=== PATIENT | female | born 1960 | race Caucasian/White ===

== ENCOUNTER 2024-09-16 10:02 | Outpatient (CLI) | payer OTHER, MEDICARE, SELFPAY ==
--- NOTE | ~2024-09-16 | XR_ITS ---
AP and lateral views of the left hip Clinical history: Pain Findings: No acute fracture or dislocation is seen. Osseous alignment is anatomic. There is severe le ft hip joint osteoarthritis, with marked joint space narrowing and reactive sclerosis. There is femor al head neck junction osteophyte formation and mild remodeling of the articular surface of the femora l head.. Soft tissues are unremarkable. Impression: Severe left hip joint osteoarthritis, as detailed above. Reviewed, dictated and finalized at location M. Impression: Severe left hip joint osteoarthritis, as detailed above.
--- NOTE | ~2024-09-16 | XR_ITS ---
AP and lateral views of the right hip Clinical history: Pain Findings: No acute fracture or dislocation is seen. Osseous alignment is anatomic. There is minimal d egenerative change of the right hip joint. Soft tissues are unremarkable. Impression: Minimal right hip joint degenerative change. Reviewed, dictated and finalized at location . Impression: Minimal right hip joint degenerative change.
== END 2024-09-16 10:03 | disposition home or self-care (01) ==
LOC: MICIMG 10:11
PROVIDERS: Referring Provider Internal Medicine; Visit Provider Nurse Practitioner Family
DX: M45.0 Ankylosing spondylitis of multiple sites in spine (principal); G47.01 Insomnia due to medical condition; Z79.899 Other long term (current) drug therapy; M54.32 Sciatica, left side; M16.12 Unilateral primary osteoarthritis, left hip
CPT/HCPCS: 73502

== ENCOUNTER 2024-11-27 10:44 | Inpatient (IN) | payer OTHER, MEDICARE, SELFPAY ==
[2024-11-27] VITALS (33 sets, daily range): BP systolic 104–152; BP diastolic 50–130; PULSE 81–775; RESP 8–24; TEMP 36.4–36.7; O2SAT 94–99; BMI 61.5
--- NOTE | ~2024-11-27 | US_ITS ---
US renal BI 11/29/2024 12:09 Procedure: Realtime transabdominal ultrasound of the kidneys and bladder. Indication: Acute renal deficiency Comparison: No prior studies for comparison. Findings: Renal echotexture is normal bilaterally without hydronephrosis, contour deforming mass or r enal calculus. The right kidney measures 9.1 cm and left kidney measures 8.9 cm. Bladder within norm al limits. Impression: 1: Unremarkable renal ultrasound. No stones, masses or hydronephrosis. Reviewed, dictated and finalized at location A. Impression: 1: Unremarkable renal ultrasound. No stones, masses or hydronephrosis.
--- NOTE | ~2024-11-27 | XR_ITS ---
EXAM: XR hip RT 2V w AP pelvis DATE: 11/27/2024 14:21 HISTORY: hip pain, trauma . COMPARISON: 09/16/2024. FINDINGS: Osteopenia. Severe lumbar degenerative change. Moderate right and severe left hip osteoart hritis. Mild degenerative change in the bilateral SI joints and pubic symphysis. Suggestion of transv erse lucency at the base of the right femoral neck. No lytic or blastic lesion. IMPRESSION: Possible right transcervical femoral neck fracture, recommend CT of the pelvis for confir mation. Reviewed, dictated and finalized at location K. IMPRESSION: Possible right transcervical femoral neck fracture, recommend CT of the pelvis for confirmation.
--- NOTE | ~2024-11-27 | CT_ITS ---
EXAMINATION: CT pelvis wo con DATE: 11/27/2024 15:41 INDICATION: Possible right hip fracture TECHNIQUE: Computed tomography (CT) of the pelvis was performed without intravenous contrast. Automat ed exposure control and iterative reconstruction technique were employed. The dose-length product was 1134.51 mGy-cm. COMPARISON: X-ray pelvis and right hip, same date FINDINGS: Degenerative changes in the spine. Mild degenerative changes in the bilateral SI joints and pubic symphysis. Severe right and moderate left hip osteoarthritis. No fracture or dislocation. No l ytic or blastic lesion. Small uncomplicated fat-containing umbilical hernia. Normal appendix. Absent uterus. Partially distended, normal-appearing urinary bladder. Bilateral ovaries not confidently iden tified. IMPRESSION: No CT evidence of acute pelvic or hip fracture. Reviewed, dictated and finalized at location K.
--- NOTE | ~2024-11-27 | XR_ITS ---
CHEST RADIOGRAPH CLINICAL HISTORY: JOSE JUAN . COMPARISON: None available TECHNIQUE: Single portable view of the chest. Examination is limited secondary to patient rotation towards their left, simulating abnormal opacific ation of the right hilum. FINDINGS The cardiomediastinal silhouette is enlarged. Platelike atelectasis is identified within the left mid to lower lung field. Prominence of the right hilum is demonstrated, likely artifactual secondary to patient rotation. The lungs are otherwise clear. IMPRESSION: Platelike atelectasis within the left mid to lower lung field. No focal infiltrate or effusion. Reviewed, dictated and finalized at location A.
--- NOTE | ~2024-11-27 | CT_ITS ---
EXAMINATION: CT brain wo con DATE: 11/27/2024 13:59 INDICATION: Trauma TECHNIQUE: Computed tomography (CT) of the head was performed without intravenous contrast. Sagittal and coronal reconstructions were performed. The mA was adjusted according to patient size. Iterative reconstruction technique was employed. The dose-length product was 1362.00 mGy-cm. COMPARISON: None FINDINGS: No fracture. No acute intracranial hemorrhage, acute infarction or abnormal extra axial fluid collect ion. Small old lacunar infarct near the [place] of the left internal capsule. Prominent perivascular spaces along the inferior aspect of the bilateral basal ganglia. There is mild scattered white matter hypoattenuation consistent with chronic small vessel ischemic disease. Ventricles are normal and sy mmetric. 1.4 x 1.3 x 1.1 cm calcified extra-axial mass overlying the right occipital lobe consistent with a meningioma. The orbits, paranasal sinuses and mastoid air cells are normal. IMPRESSION: 1. No fracture or acute intracranial process. 2. Small old lacunar infarct at the left internal capsule and mild scattered white matter hypoattenua tion consistent with chronic small vessel ischemic disease. 3. 1.4 cm calcified meningioma overlying the right occipital lobe. Reviewed, dictated and finalized at location A. IMPRESSION: 1. No fracture or acute intracranial process. 2. Small old lacunar infarct at the left internal capsule and mild scattered wh ite matter hypoattenuation consistent with chronic small vessel ischemic diseas e. 3. 1.4 cm calcified meningioma overlying the right occipital lobe.
--- NOTE | 2024-11-27 11:58 | ECG_ITS ---
Test Date: 2024-11-27 12:02:55 Measurements Intervals [place] Rate: 159 P: 0 PA: 0 QRS: 11 QRSD: 97 T: 27 QT: 296 QTc: 482 Interpretive Statements ATRIAL FLUTTER/TACHYCARDIA WITH RAPID VENTRICULAR RESPONSE BORDERLINE R WAVE PROGRESSION, ANTERIOR LEADS BASELINE ARTIFACT- I, II, III, AVR, AVL, AVF, V1 ABNORMAL ECG No previous ECG available for comparison Electronically Signed On 11-27-2024 16:20:10 CDT by Willy Peck D.O.
[2024-11-27] MEDS: LACTATED RINGERS 1,000 ML 999 ML IV CONT (12:22)
[2024-11-27] MEDS: METOPROLOL TARTRATE INJ 5 MG/5 ML VIAL IV PUSH (12:22)
--- NOTE | 2024-11-27 12:22 | ECG_ITS ---
Test Date: 2024-11-27 12:25:41 Measurements Intervals [place] Rate: 117 P: 0 [place]: 0 QRS: 22 QRSD: 104 T: 44 QT: 322 QTc: 450 Interpretive Statements ATRIAL FLUTTER/TACHYCARDIA WITH RAPID VENTRICULAR RESPONSE DELAYED PRECORDIAL R/S TRANSITION CONSIDER INFERIOR INFARCT, AGE INDETERMINATE ABNORMAL ECG Compared to ECG 11/27/2024 12:02:55 HEART RATE HAS DECREASED Electronically Signed On 11-27-2024 16:21:00 CDT by Willy Peck D.O.
[2024-11-27 12:31] LABS: Hematocrit 40.0 % (37.0-47.0); Hemoglobin 14.1 g/dL (12.0-15.0); Immature Granulocyte Percent A 0.7 % (0-0.5); Lymphocytes Absolute Auto 1.67 K/mm3 (0.9-3.2); Mean Corpuscular HGB Conc 35.3 g/dl (32-36); Mean Corpuscular Hemoglobin 38.2 pg (26-34); Mean Corpuscular Volume 108.4 fl (80-100); Nucleated Red Blood Cells Absolute Auto 0.110 K/mm3 (0.0-0.012); Nucleated Red Blood Cells Perc 1.0 % (0.0-0.2); Platelet Count Result 325 k/mm3 (150-375); Red Blood Count 3.69 M/mm3 (4.2-5.4); White Blood Count 11.0 K/mm3 (4.5-10.0)
--- NOTE | 2024-11-27 12:35 | ED_ITS ---
HPI - General Adult General Chief complaint: Fall Stated complaint: fall Time Seen by Provider: 11/27/24 11:43 History of Present Illness HPI narrative: 64-year-old female presents to the emergency department for evaluation for right hip pain after having a fall from bed. Patient reports a few days ago she was not eating and drinking as well she showed but felt this proved since . Patient states that she is unsure why she fell from bed. Have history of osteoarthritis. After patient arrived to the emergency department her heart rate did increase to a heart rate of 160s. Related Data Allergies Allergy/AdvReac Type Severity Reaction Status Date / Time No Known Allergies Allergy Verified 11/27/24 10:49 Review of Systems 2 Review of Systems: All systems reviewed & are unremarkable except as noted in HPI and below Exam 2 Narrative: APPEARANCE: Well appearing, no pain, no distress, well-nourished. HEAD: normocephalic, atraumatic. EYES: PERRLA/EOMI, conjunctivae clear. NOSE: Normal no drainage EARS:TMS clear with good light reflex. THROAT: Pharynx clear, no exudate. NECK: Supple. No adenopathy, no masses. RESPIRATORY: Airway patent, respirations nonlabored. Clear to auscultation bilaterally, no rales, rhonchi, wheezing. CARDIOVASCULAR: Tachycardia ABDOMINAL: Soft, nontender, nondistended, normal bowel sounds MUSCULOSKELETAL: Mild tenderness to right buttock with palpation, normal range of motion of the right hip NEURO: Alert. Cranial nerves II through XII intact. Good gait. Good coordination SKIN: Warm, dry. Normal Color Course Vital Signs Vital signs: Vital Signs Temperature 97.9 F 11/27/24 10:41 Pulse Rate 114 H 11/27/24 10:41 Respiratory Rate 14 11/27/24 10:41 Blood Pressure 152/85 H 11/27/24 10:41 Pulse Oximetry 99 11/27/24 10:41 Oxygen Delivery Room Air 11/27/24 10:41 Temperature 97.9 F 11/27/24 10:41 Pulse Rate 130 H 11/27/24 17:15 Respiratory Rate 24 H 11/27/24 17:15 Blood Pressure 140/129 H 11/27/24 13:02 Pulse Oximetry 95 11/27/24 17:15 Oxygen Delivery Room Air 11/27/24 10:41 Medical Decision Making MDM Narrative Medical decision making narrative: 64-year-old female presents to the emergency department for evaluation for having a fall from bed. Patient is currently afebrile but does have a leukocytosis 11.0 hemoglobin of 14.1. Patient's INR is 1.0. Patient has no significant acute abnormalities to her CMP patient does have an elevated CRP at 2.9 a TSH of 0 point 294 with a normal free T4, total T3 is pending. Head CT was negative for acute intracranial abnormality, this ordered as well patient fell out of bed she did suspect that she struck her head. X-ray of hip shows no acute fracture dislocation. While patient was in the emergency department she did enter a heart rate into the 160s, this did appear to be regular but no P waves were seen on the EKG, patient was treated with a dose of 5 mg IV Lopressor and this did slow her heart rate and she became more irregular revealing a rhythm of atrial flutter. Patient was started on Cardizem bolus and infusion. Patient's heart rate improved but was still elevated and Cardizem is being titrated up patient was treated with a 2nd dose of 10 mg IV Cardizem. Patient family updated the results of the workup and patient will be admitted to IMU. Critical Care Procedure Note Authorized and Performed by: Dwayne Ballard Total critical care time: Approximately 36 minutes Due to a high probability of clinically significant, life threatening deterioration, the patient required my highest level of preparedness to intervene emergently and I personally spent this critical care time directly and personally managing the patient. This critical care time included obtaining a history; examining the patient; pulse oximetry; ordering and review of studies; arranging urgent treatment with development of a management plan; evaluation of patient's response to treatment; frequent reassessment; and, discussions with other providers. This critical care time was performed to assess and manage the high probability of imminent, life-threatening deterioration that could result in multi-organ failure. It was exclusive of separately billable procedures and treating other patients and teaching time. Please see MDM section and the rest of the note for further information on patient assessment and treatment. Differential Diagnosis Differential Diagnosis: Hip fracture, hip contusion, AFib, a flutter, UTI, kidney stone, COVID, RSV, influenza, Vital Signs Vital Signs: Vital Signs Temperature 97.9 F 11/27/24 10:41 Pulse Rate 114 H 11/27/24 10:41 Respiratory Rate 14 11/27/24 10:41 Blood Pressure 152/85 H 11/27/24 10:41 Pulse Oximetry 99 11/27/24 10:41 Oxygen Delivery Room Air 11/27/24 10:41 Temperature 97.9 F 11/27/24 10:41 Pulse Rate 130 H 11/27/24 17:15 Respiratory Rate 24 H 11/27/24 17:15 Blood Pressure 140/129 H 11/27/24 13:02 Pulse Oximetry 95 11/27/24 17:15 Oxygen Delivery Room Air 11/27/24 10:41 Lab Data Lab results reviewed: Yes I reviewed the patient's lab results. 11/27/24 12:23 11/27/24 12:46 Labs: Lab Results 11/27/24 11/27/24 11/27/24 Range/Units 12:23 12:46 12:46 WBC 11.0 H (4.5-10.0) K/mm3 RBC 3.69 L (4.2-5.4) M/mm3 Hgb 14.1 (12.0-15.0) g/dL Hct 40.0 (37.0-47.0) % MCV 108.4 H (80-100) fl MCH 38.2 H (26-34) pg MCHC 35.3 (32-36) g/dl RDW 13.2 (11.5-14.5) % Plt Count 325 (150-375) k/mm3 MPV 10.3 (7.4-10.4) fl Immature Gran % (Auto) 0.7 H (0-0.5) % Neut % (Auto) 70.6 (45.5-73.1) % Lymph % (Auto) 15.2 L (18.3-44.2) % [place] % (Auto) 12.5 H (2.6-8.5) % Eos % (Auto) 0.5 (0-4.4) % Baso % (Auto) 0.5 (0.2-1.2) % Lymph # (Auto) 1.67 (0.9-3.2) K/mm3 [place] # (Auto) 1.4 H (0.1-0.6) K/mm3 Eos # (Auto) 0.1 (0-0.3) K/mm3 Baso # (Auto) 0.1 (0.0-0.1) K/mm3 Abs Immat Gran (auto) 0.08 H (0.00-0.031) K/mm3 Absolute Neuts (auto) 7.8 H (1.3-6.7) K/mm3 Absolute Nucleated RBC 0.110 H (0.0-0.012) K/mm3 Band Neutrophils % Not Reportable Nucleated RBC % 1.0 H (0.0-0.2) % Platelet Estimate Adequate (Adequate) Macrocytosis 2+ (NORMAL) Schistocytes None seen PT (11.1-14.7) Seconds INR APTT (22.3-36.8) Seconds Sodium Cancelled 135 L Potassium Cancelled Chloride Carbon Dioxide Anion Gap BUN Creatinine Estim Creat Clear Calc Estimated GFR Glucose Lactic Acid (0.7-2.0) mmol/L Calcium Magnesium (1.6-2.3) mg/dL Total Bilirubin AST ALT Alkaline Phosphatase C-Reactive Protein (<1.0) mg/dL Total Protein Albumin TSH (Reflex) (0.465-4.68) uIU/mL Free T4 (0.78-2.19) ng/dL Total T3 (0.82-1.58) NG/ML 11/27/24 11/27/24 11/27/24 Range/Units 12:46 12:46 12:46 WBC (4.5-10.0) K/mm3 RBC (4.2-5.4) M/mm3 Hgb (12.0-15.0) g/dL Hct (37.0-47.0) % MCV (80-100) fl MCH (26-34) pg MCHC (32-36) g/dl RDW (11.5-14.5) % Plt Count (150-375) k/mm3 MPV (7.4-10.4) fl Immature Gran % (Auto) (0-0.5) % Neut % (Auto) (45.5-73.1) % Lymph % (Auto) (18.3-44.2) % [place] % (Auto) (2.6-8.5) % Eos % (Auto) (0-4.4) % Baso % (Auto) (0.2-1.2) % Lymph # (Auto) (0.9-3.2) K/mm3 [place] # (Auto) (0.1-0.6) K/mm3 Eos # (Auto) (0-0.3) K/mm3 Baso # (Auto) (0.0-0.1) K/mm3 Abs Immat Gran (auto) (0.00-0.031) K/mm3 Absolute Neuts (auto) (1.3-6.7) K/mm3 Absolute Nucleated RBC (0.0-0.012) K/mm3 Band Neutrophils % Nucleated RBC % (0.0-0.2) % Platelet Estimate (Adequate) Macrocytosis (NORMAL) Schistocytes PT (11.1-14.7) Seconds INR APTT (22.3-36.8) Seconds Sodium Potassium 4.0 Chloride Cancelled 98 Carbon Dioxide Cancelled 31 H Anion Gap Cancelled BUN Creatinine Estim Creat Clear Calc Estimated GFR Glucose Lactic Acid (0.7-2.0) mmol/L Calcium Magnesium (1.6-2.3) mg/dL Total Bilirubin AST ALT Alkaline Phosphatase C-Reactive Protein (<1.0) mg/dL Total Protein Albumin TSH (Reflex) (0.465-4.68) uIU/mL Free T4 (0.78-2.19) ng/dL Total T3 (0.82-1.58) NG/ML 11/27/24 11/27/24 11/27/24 Range/Units 12:46 12:46 12:46 WBC (4.5-10.0) K/mm3 RBC (4.2-5.4) M/mm3 Hgb (12.0-15.0) g/dL Hct (37.0-47.0) % MCV (80-100) fl MCH (26-34) pg MCHC (32-36) g/dl RDW (11.5-14.5) % Plt Count (150-375) k/mm3 MPV (7.4-10.4) fl Immature Gran % (Auto) (0-0.5) % Neut % (Auto) (45.5-73.1) % Lymph % (Auto) (18.3-44.2) % [place] % (Auto) (2.6-8.5) % Eos % (Auto) (0-4.4) % Baso % (Auto) (0.2-1.2) % Lymph # (Auto) (0.9-3.2) K/mm3 [place] # (Auto) (0.1-0.6) K/mm3 Eos # (Auto) (0-0.3) K/mm3 Baso # (Auto) (0.0-0.1) K/mm3 Abs Immat Gran (auto) (0.00-0.031) K/mm3 Absolute Neuts (auto) (1.3-6.7) K/mm3 Absolute Nucleated RBC (0.0-0.012) K/mm3 Band Neutrophils % Nucleated RBC % (0.0-0.2) % Platelet Estimate (Adequate) Macrocytosis (NORMAL) Schistocytes PT (11.1-14.7) Seconds INR APTT (22.3-36.8) Seconds Sodium Potassium Chloride Carbon Dioxide Anion Gap 6 BUN Cancelled 16 Creatinine Cancelled 1.14 H Estim Creat Clear Calc Cancelled Estimated GFR Glucose Lactic Acid (0.7-2.0) mmol/L Calcium Magnesium (1.6-2.3) mg/dL Total Bilirubin AST ALT Alkaline Phosphatase C-Reactive Protein (<1.0) mg/dL Total Protein Albumin TSH (Reflex) (0.465-4.68) uIU/mL Free T4 (0.78-2.19) ng/dL Total T3 (0.82-1.58) NG/ML 11/27/24 11/27/24 11/27/24 Range/Units 12:46 12:46 12:46 WBC (4.5-10.0) K/mm3 RBC (4.2-5.4) M/mm3 Hgb (12.0-15.0) g/dL Hct (37.0-47.0) % MCV (80-100) fl MCH (26-34) pg MCHC (32-36) g/dl RDW (11.5-14.5) % Plt Count (150-375) k/mm3 MPV (7.4-10.4) fl Immature Gran % (Auto) (0-0.5) % Neut % (Auto) (45.5-73.1) % Lymph % (Auto) (18.3-44.2) % [place] % (Auto) (2.6-8.5) % Eos % (Auto) (0-4.4) % Baso % (Auto) (0.2-1.2) % Lymph # (Auto) (0.9-3.2) K/mm3 [place] # (Auto) (0.1-0.6) K/mm3 Eos # (Auto) (0-0.3) K/mm3 Baso # (Auto) (0.0-0.1) K/mm3 Abs Immat Gran (auto) (0.00-0.031) K/mm3 Absolute Neuts (auto) (1.3-6.7) K/mm3 Absolute Nucleated RBC (0.0-0.012) K/mm3 Band Neutrophils % Nucleated RBC % (0.0-0.2) % Platelet Estimate (Adequate) Macrocytosis (NORMAL) Schistocytes PT (11.1-14.7) Seconds INR APTT (22.3-36.8) Seconds Sodium Potassium Chloride Carbon Dioxide Anion Gap BUN Creatinine Estim Creat Clear Calc 62 Estimated GFR Cancelled 48 L Glucose Cancelled 122 H Lactic Acid 1.8 (0.7-2.0) mmol/L Calcium Cancelled Magnesium (1.6-2.3) mg/dL Total Bilirubin AST ALT Alkaline Phosphatase C-Reactive Protein (<1.0) mg/dL Total Protein Albumin TSH (Reflex) (0.465-4.68) uIU/mL Free T4 (0.78-2.19) ng/dL Total T3 (0.82-1.58) NG/ML 11/27/24 11/27/24 11/27/24 Range/Units 12:46 12:46 12:46 WBC (4.5-10.0) K/mm3 RBC (4.2-5.4) M/mm3 Hgb (12.0-15.0) g/dL Hct (37.0-47.0) % MCV (80-100) fl MCH (26-34) pg MCHC (32-36) g/dl RDW (11.5-14.5) % Plt Count (150-375) k/mm3 MPV (7.4-10.4) fl Immature Gran % (Auto) (0-0.5) % Neut % (Auto) (45.5-73.1) % Lymph % (Auto) (18.3-44.2) % [place] % (Auto) (2.6-8.5) % Eos % (Auto) (0-4.4) % Baso % (Auto) (0.2-1.2) % Lymph # (Auto) (0.9-3.2) K/mm3 [place] # (Auto) (0.1-0.6) K/mm3 Eos # (Auto) (0-0.3) K/mm3 Baso # (Auto) (0.0-0.1) K/mm3 Abs Immat Gran (auto) (0.00-0.031) K/mm3 Absolute Neuts (auto) (1.3-6.7) K/mm3 Absolute Nucleated RBC (0.0-0.012) K/mm3 Band Neutrophils % Nucleated RBC % (0.0-0.2) % Platelet Estimate (Adequate) Macrocytosis (NORMAL) Schistocytes PT (11.1-14.7) Seconds INR APTT (22.3-36.8) Seconds Sodium Potassium Chloride Carbon Dioxide Anion Gap BUN Creatinine Estim Creat Clear Calc Estimated GFR Glucose Lactic Acid (0.7-2.0) mmol/L Calcium 9.4 Magnesium 1.9 (1.6-2.3) mg/dL Total Bilirubin Cancelled 0.6 AST Cancelled 87 H ALT Cancelled Alkaline Phosphatase C-Reactive Protein (<1.0) mg/dL Total Protein Albumin TSH (Reflex) (0.465-4.68) uIU/mL Free T4 (0.78-2.19) ng/dL Total T3 (0.82-1.58) NG/ML 11/27/24 11/27/24 11/27/24 Range/Units 12:46 12:46 12:46 WBC (4.5-10.0) K/mm3 RBC (4.2-5.4) M/mm3 Hgb (12.0-15.0) g/dL Hct (37.0-47.0) % MCV (80-100) fl MCH (26-34) pg MCHC (32-36) g/dl RDW (11.5-14.5) % Plt Count (150-375) k/mm3 MPV (7.4-10.4) fl Immature Gran % (Auto) (0-0.5) % Neut % (Auto) (45.5-73.1) % Lymph % (Auto) (18.3-44.2) % [place] % (Auto) (2.6-8.5) % Eos % (Auto) (0-4.4) % Baso % (Auto) (0.2-1.2) % Lymph # (Auto) (0.9-3.2) K/mm3 [place] # (Auto) (0.1-0.6) K/mm3 Eos # (Auto) (0-0.3) K/mm3 Baso # (Auto) (0.0-0.1) K/mm3 Abs Immat Gran (auto) (0.00-0.031) K/mm3 Absolute Neuts (auto) (1.3-6.7) K/mm3 Absolute Nucleated RBC (0.0-0.012) K/mm3 Band Neutrophils % Nucleated RBC % (0.0-0.2) % Platelet Estimate (Adequate) Macrocytosis (NORMAL) Schistocytes PT (11.1-14.7) Seconds INR APTT (22.3-36.8) Seconds Sodium Potassium Chloride Carbon Dioxide Anion Gap BUN Creatinine Estim Creat Clear Calc Estimated GFR Glucose Lactic Acid (0.7-2.0) mmol/L Calcium Magnesium (1.6-2.3) mg/dL Total Bilirubin AST ALT 36 H Alkaline Phosphatase Cancelled 71 C-Reactive Protein 2.9 H (<1.0) mg/dL Total Protein Cancelled 6.9 Albumin Cancelled TSH (Reflex) (0.465-4.68) uIU/mL Free T4 (0.78-2.19) ng/dL Total T3 (0.82-1.58) NG/ML 11/27/24 11/27/24 Range/Units 12:46 13:33 WBC (4.5-10.0) K/mm3 RBC (4.2-5.4) M/mm3 Hgb (12.0-15.0) g/dL Hct (37.0-47.0) % MCV (80-100) fl MCH (26-34) pg MCHC (32-36) g/dl RDW (11.5-14.5) % Plt Count (150-375) k/mm3 MPV (7.4-10.4) fl Immature Gran % (Auto) (0-0.5) % Neut % (Auto) (45.5-73.1) % Lymph % (Auto) (18.3-44.2) % [place] % (Auto) (2.6-8.5) % Eos % (Auto) (0-4.4) % Baso % (Auto) (0.2-1.2) % Lymph # (Auto) (0.9-3.2) K/mm3 [place] # (Auto) (0.1-0.6) K/mm3 Eos # (Auto) (0-0.3) K/mm3 Baso # (Auto) (0.0-0.1) K/mm3 Abs Immat Gran (auto) (0.00-0.031) K/mm3 Absolute Neuts (auto) (1.3-6.7) K/mm3 Absolute Nucleated RBC (0.0-0.012) K/mm3 Band Neutrophils % Nucleated RBC % (0.0-0.2) % Platelet Estimate (Adequate) Macrocytosis (NORMAL) Schistocytes PT 13.1 (11.1-14.7) Seconds INR 1.0 APTT 29.6 (22.3-36.8) Seconds Sodium Potassium Chloride Carbon Dioxide Anion Gap BUN Creatinine Estim Creat Clear Calc Estimated GFR Glucose Lactic Acid (0.7-2.0) mmol/L Calcium Magnesium (1.6-2.3) mg/dL Total Bilirubin AST ALT Alkaline Phosphatase C-Reactive Protein (<1.0) mg/dL Total Protein Albumin 3.9 TSH (Reflex) 0.294 L (0.465-4.68) uIU/mL Free T4 1.59 (0.78-2.19) ng/dL Total T3 0.76 L (0.82-1.58) NG/ML Imaging Data Radiologist's impression: Impressions Head CT 11/27/24 14:07 IMPRESSION: 1. No fracture or acute intracranial process. 2. Small old lacunar infarct at the left internal capsule and mild scattered white matter hypoattenuation consistent with chronic small vessel ischemic disease. 3. 1.4 cm calcified meningioma overlying the right occipital lobe. Hip/Pelvis X-Ray 11/27/24 15:09 IMPRESSION: Possible right transcervical femoral neck fracture, recommend CT of the pelvis for confirmation. ECG Data EKG #1: EKG Interpretation: tachycardia, atrial flutter, no ectopy, non-specific ST changes, normal QRS, normal QT and NL axis Critical Care Time Critical Care Time Critical Care Time: Yes Total Critical Care Time: 36 Discharge Plan Discharge Clinical Impression: Head injury, Atrial flutter with rapid ventricular response, Acute UTI Hip injury Qualifiers: Encounter type: initial encounter Laterality: right Qualified Code(s): S79.911A - Unspecified injury of right hip, initial encounter Patient Disposition: Still a Patient Condition: Serious
--- OUTSIDE RECORDS SUMMARY | 2024-11-27 12:35 | XMS_ITS | Continuity of Care Document ---
Author Organization [facility] Address [address] [place] [address] Phone Care Team Providers Care Home Care Liaison Name Role Phone Ceci JOVEL OD, Chantel Unavailable Unavailable Allergies, Adverse Reactions, Alerts Substance Reaction Status Criticality No Known Allergies Active No Inform ation Medications Medication Instructions Dosage Effective Dates (start - stop) Status Comments lisinopril 10 mg tablet take 1 tablet by oral route every day 10 MG - Active ezetimibe 10 mg tablet take 1 tablet by oral route every day 10 MG - Active diltiazem 120 mg tablet take 1 tablet by oral route every day 120 MG - Active aspirin 81 mg tablet,delayed release take 1 tablet by oral route every day 81 MG - Active metoprolol succinate ER 25 mg tablet,extended release 24 hr take 1 tablet by oral route every day 25 MG - Active rosuvastatin 20 mg tablet take 1 tablet by oral route every day 20 MG - Active Synjardy XR 10 mg-1,000 mg tablet, extended release take 2 tablet by oral route every day in the morning with a meal 2.00 tablet - Active Procedures Procedure Date OFFICE/OUTPATIENT VISIT, EST OFFICE/OUTPATIENT VISIT, NEW Advance Directives Directive Yes / No Effective Date File Name No Information Encounters Encounter Description Practice Location Reason(s) For Visit Diagnoses Date Provider Providers Copied on Encounter OFFICE/OUTPAT IENT VISIT, [facility], [facility] [address] [place], [place], [id number] tel:[phone] VANNESSA [place] P[place] right eye (chief complaint) Posterior vitreous detachment, right eyeOpen angle with borderline findings of both eyes 1 Ceci OD Chantel. [facility] [address] [place], [place], [id number]. tel:[phone] Referring Provider: Chantel Ornelas OD R, [facility] [place], [address]. tel:[phone] OFFICE/OUTPAT IENT VISIT, [facility], [facility] [place], [id number] tel:[phone] VANNESSA [place] floaters right eye 5 day(s) (chief complaint) irritation right eye 5 day(s) (chief complaint) comments only (chief complaint) Posterior vitreous detachment, right eye 1 Hugouvaltaf OD Colin. [facility] [place], [place], [id number]. tel:[phone] Referring Provider: Bryan Beard, [address] [facility], [place], [address]. tel:[phone] Family History Family Member Type Diagnosis Age At Onset Father Problem glaucoma Father Problem Diabetes mellitus Father Problem Cardiovascular disease Payers Payer name Insurance type Covered alliance party ID Authoriza tion(s) No Information Social History Type Description Quantity Date Captured Comments Alcohol Use Details No Caffeine Use Details Unknown Tobacco Use Status Current non-smoker Smoking Status No Information Sex Female Chief Complaint And Reason For Visit From encounter dated '12/12/2020 11:00'. PVD right eye (chief complaint) Reason For Referral Reason For Referral No Information History Of Present Illness Encounter Date Complaint History Of Prese nt Illness PVD The 60 year old presents for evaluation of PVD in the right eye. The symptom is constant. The condition is stable. Pt denies flashes of light or increased floaters. floaters The 60 year old presents for evaluation of floaters in the right eye. It started about 5 day(s) ago. The symptom is intermittent. The condition is unstable. Pt states noticing occasional floater that looks like a windshield wiper. Pt denies any flashes or veil in vision. Pt says she fell 10 days ago; broken left ankle, denies hitting head. irritation The 60 year old presents for evaluation of irritation in the right eye. It started about 5 day(s) ago. The symptom is intermittent. The condition is mild. Pt says occasional discharge. comments only Last exam a coup le year ago @ [facility] in [place]; specs updated @ exam. 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 Related to Posterior vitreous detachment, right eye Impression/Plan Related to Poste rior vitreous detachment, right eye Assessments Type Assessment Date assessment Posterior vitreous detachment, r ight eye impression Posterior vitreous d etachment, right eye: H43.811 Right. Condition: established, stable assessment Open angle with borderline findi ngs of both eyes impression Open angle with bord lee ann findings of both eyes: H40.013. Condition: new problem, no addtl w/u needed Patient Care Teams Name Effective Dates (start - stop) Status Members No Information
--- OUTSIDE RECORDS SUMMARY | 2024-11-27 12:35 | XMS_ITS | Continuity of Care Document ---
Author Organization [facility] Address [address] [place] [address] Phone Care Team Providers Care Commercial Pest [employer] Representative Name Role Phone Vasile AL MD, Felictias Unavailable Unavailable Allergies, Adverse Reactions, Alerts Substance Reaction Status Criticality No Known Allergies Active No Inform ation Medications Medication Instructions Dosage Effective Dates (start - stop) Status Comments Ozempic 2 mg/dose (8 mg/3 mL) subcutaneous pen injector inject (2MG) by subcutaneous route every week on the same day of each week 2 MG - Active Jardiance 10 mg tablet take 1 tablet by oral route every day in the morning 10 MG - Active aspirin 81 mg tablet,delayed release take 1 tablet by oral route every day 81 MG - Active Centrum Silver Women 8 mg iron-400 mcg-50 mcg tablet 1 tablet daily - Active Crestor 20 mg tablet take 1 tablet by oral route every day 20 MG - Active lisinopril 10 mg tablet take 1 tablet by oral route every day 10 MG - Active metoprolol succinate ER 25 mg tablet,extended release 24 hr take 1 tablet by oral route every day 25 MG - Active nitroglycerin 0.[address] 1 tablet by sublingual route at 1st sign of attack; may repeat every 5 minutes up to 3 tabs; if norelief seek medical help 0.4 MG - Active diltiazem CD 120 mg capsule,extended release 24 hr take 1 capsule by oral route every day 120 MG - Active ezetimibe 10 mg tablet take 1 tablet by oral route every day 10 MG - Active Vitamin D3 50 mcg (2,000 unit) capsule take 1 tablet by oral route every day 1 tablet - Active diltiazem CD 120 mg capsule,extended release 24 hr take 1 capsule by oral route every day 120 MG No Longer Active metoprolol succinate ER 25 mg tablet,extended release 24 hr take 1 tablet by oral route every day 25 MG No Longer Active lisinopril 10 mg tablet take 1 tablet by oral route every day 10 MG No Longer Active rosuvastatin 20 mg tablet take 1 tablet by oral route every day 20 MG No Longer Active Phhq-Ayug-Eddh (vit A,I-aqcxaf-Tw-Cu) 2,500 unit-100 mg-2,500 mcg cap take 1 gum by oral route every day 1 gum No Longer Active Calcium-600 600 mg (as calcium carbonate 1,500 mg) tablet take 1 tablet by oral route every day 1 tablet No Longer Active [place]-3 350 mg-235 mg-90 mg-597 mg capsule,delayed release 1 tablet daily No Longer Active nitroglycerin 0.[address] 1 tablet by sublingual route at 1st sign of attack; may repeat every 5 minutes up to 3 tabs; if norelief seek medical help 0.4 MG No Longer Active aspirin 81 mg tablet,delayed release take 1 tablet by oral route every day 81 MG No Longer Active Centrum Silver Women 8 mg iron-400 mcg-50 mcg tablet 1 tablet daily No Longer Active Crestor 20 mg tablet take 1 tablet by oral route every day 20 MG - No Longer Active Procedures Procedure Date EKG With Interp And Report Office Visit Level 4 ACP Disc And Doc, No Surrogate Documente d Office Visit Level 3 ACP Disc And Doc, No Surrogate Documente d Office Visit Level 4 EKG With Interp And Report Office Visit Level 4 ACP Disc And Doc, Surrogate Documented N Rubidium Rb 82 Up To 60 Mc Nuclear scan, PET, perfusion, mult studi es Regadenoscan Per 0.1 MG Stress Test, Complete Office Visit Level 4 ACP Disc And Doc, No Surrogate Documente d EKG With Interp And Report Office Visit Level 4 ACP Disc And Doc, No Surrogate Documente d EKG With Interp And Report Office Visit Level 4 ACP Disc And Doc, No Surrogate Documente d EKG With Interp And Report Office Visit Level 4 ACP Disc And Doc, No Surrogate Documente d Office Visit Level 4 Office Visit Level 4 No Charge EM Office Visit Level 1 Office Visit Level 4 EKG With Interp And Report No Charge EM Office Visit Level 1 Office Visit Level 4 Left Heart Cath With Cors W/WO LV NUC-Cardiolite/Per Dose Nuc-Perf Scan, Mult, W/EF & WM 16 IO-Stress Supervision, Office 6 Stress Tracing Only Regadenoscan Per 0.1 MG IO-Stress Intepretation, Office 016 Echo, 2D Complete Office Visit Level 4 EKG With Interp And Report Left Heart Cath Injection, LV Angios During Cath 2008 Injection, Coronary Angio During Cath Oc Atrial/Ventr Imaging, Angiogram S&I Vessel Imaging, Angiogram, S&I 09 Office Visit Level 4 Echo, 2D Complete NUC-Cardiolite/Per Dose NUC-Perfusion Scan Multiple NUC-Ejection Fraction NUC-Gated Wall Motion Regadenoscan Per 0.1 MG Stress Test, Complete Office Consultation Level 4 IO-Stress Intepretation, [facility] IO-Stress Supervision, [facility] 006 Advance Directives Directive Yes / No Effective Date File Name Other Directive No N/A N/A WARNING:The information contained in this section is historical and is provided for information only and does not constitute a legal document or any assurance that the information is still accurate. Please verify the information with the [place] of the legal document before using it for clinical purposes. Encounters Encounter Description Practice Location Reason(s) For Visit Diagnoses Date Provider Providers Copied on Encounter Office Visit Level 4 [facility], [address], [place], [address], tel:[phone] Samuel CVM cardiovascul ar evaluation (chief complaint) Type 2 diabetes mellitus with unspecified complication sHyperlipide leo, unspecifiedS leep apnea, unspecifiedN onrheumatic pulmonary valve disorderChro doreen diastolic (congestive) heart failure 5 Vasile Polk. [facility] , [address], [place], [place], [id number], [place]. tel:[phone] Referring Provider: Brandon Bliss, [facility] [address], [place], [address]. tel:[phone] [facility], [address], [place], [address], [place] tel:[phone] Samuel CVM No Information 5 Vasile Polk. [facility], [address], [place], [place], [address], [place]. tel:[phone] [facility], [address], [place], [address], [place] tel:[phone] Samuel CVM No Information 4 Vasile Polk. [facility], [address], [place], [place], [address], [place]. tel:[phone] [facility], [address], [place], [address], [place] tel:[phone] Maxwell CVM No Information 4 Vasile Polk. [facility], [address], [place], [place], [address], [place]. tel:[phone] Office Visit Level 3 [facility], [address], [place], [address], [place] tel:[phone] Samuel CVM CAD (chief complaint)Ca rdiovascular Review (chief complaint) Type 2 diabetes mellitus with unspecified complication sEssential (primary) hypertension Hyperlipidem ia, unspecifiedS leep apnea, unspecifiedC hronic diastolic heart failureCAD in [place] artery 4 Kd Dunne. [facility], [address], [place], [place], [address], [place]. tel:[phone] Referring Provider: Felicitas Burnette MD H, [facility] [address], [place], [address]. tel:[phone] Office Visit Level 4 [facility], [address], [place], [address], [place] tel:[phone] Samuel CVM cardiovascul ar evaluation (chief complaint)Ca rdiovascular Review (chief complaint)CA D (chief complaint)My ocardial bridge (chief complaint) Type 2 diabetes mellitus with unspecified complication sEssential (primary) hypertension Hyperlipidem ia, unspecifiedS leep apnea, unspecifiedC hronic diastolic heart failureCAD in [place] artery 3 Yohannes Rice. [facility], [address], [place], [place], [address], [place]. tel:[phone] Referring Provider: Dwayne Sheffield APN, [facility] [address], [place], [address]. tel:[phone] Office Visit Level 4 [facility], [address], [place], [address], tel:[phone] Samuel CVM Follow Up Visit (chief complaint) Type 2 diabetes mellitus with unspecified complication sEssential (primary) hypertension Hyperlipidem ia, unspecifiedS leep apnea, unspecifiedC hronic diastolic heart failure 2 Vasile Polk. [facility] , [address], [place], [place], [address], [place]. tel:[phone] Referring Provider: Felicitas Burnette MD , [facility] [address], [place], [address]. tel:[phone] [facility], [address], [place], [address], [place] tel:[phone] Samuel CVM No Information 2 Natalya Dunne. [facility], [address], [place], [place], [id number], [place]. [facility], [address], [place], [address], [place] tel:[phone] DX Maxwell CVM Other forms of chronic ischemic heart diseaseAther osclerotic heart disease of [place] coronary artery without angina pectorisEsse ntial (primary) hypertension Hyperlipidem ia, unspecifiedN onrheumatic tricuspid (valve) insufficienc yType 2 diabetes mellitus with unspecified complication s 2 Vasile Polk. [facility] , [address], [place], [place], [address], [place]. tel:[phone] Referring Provider: Vibha Ang, [facility] [address], [place], [address]. Office Visit Level 4 [facility], [address], [place], [address], [place] tel:[phone] Maxwell CVM CAD (chief complaint)Ca rdiovascular Review (chief complaint) CAD in [place] arteryMyocar dial bridgeHTN, goal below 130/80Hyperl ipidemia LDL goal <70Non-rheum atic tricuspid valve insufficienc yType 2 diabetes mellitus with complication , without long-term current use of insulinMorbi d (severe) obesity due to excess calories 2 Natalya Dunne. [facility], [address], [place], [place], [address], [place]. Referring Provider: Vibha Ang, [facility] [address], [place], [address]. Office Visit Level 4 [facility], [address], [place], [address], [place] tel:[phone] Maxwell CVM CAD (chief complaint)Ca rdiovascular Review (chief complaint) CAD in [place] arteryMyocar dial bridgeHTN, goal below 130/80Hyperl ipidemia LDL goal <70Non-rheum atic tricuspid valve insufficienc yType 2 diabetes mellitus with complication , without long-term current use of insulin 1 Natalya Dunne. [facility], [address], [place], [place], [id number], [place]. Referring Provider: Vibha Ang, [facility] [address], [place], [address]. Office Visit Level 4 [facility], [address], [place], [address], [place] tel:[phone] Maxwell CVM CAD (chief complaint)Ca rdiovascular Review (chief complaint) CAD in [place] arteryMyocar dial bridgeHTN, goal below 130/80Hyperl ipidemia LDL goal <70Non-rheum atic tricuspid valve insufficienc yType 2 diabetes mellitus with complication , without long-term current use of insulin Feb- 0 Yohannes Rice. [facility] , [address], [place], [place], [address], [place]. tel:[phone] Referring Provider: Dwayne Sheffield APN, [facility] [address], [place], [address]. tel:[phone] Office Visit Level 4 [facility], [address], [place], [address], [place] tel:[phone] Samuel CVM Follow Up Visit (chief complaint) Type 2 diabetes mellitus without complication sSleep apnea, unspecifiedM alformation of coronary vessels 0 9 Vasile Polk. [facility], [address], [place], [place], [address], [place]. tel:[phone] Referring Provider: Felicitas Bliss, [facility] [address], [place], [address]. tel:[phone] Office Visit Level 4 [facility], [address], [place], [address], [place] tel:[phone] Samuel CVM Follow Up Visit (chief complaint) Essential (primary) hypertension Hyperlipidem ia, unspecifiedS leep apnea, unspecifiedT ype 2 diabetes mellitus without complication s Jaime-0 8 Vasile Polk. [facility], [address], [place], [place], [address], [place]. tel:[phone] Referring Provider: Felicitas Bliss, [facility] [address], [place], [address]. tel:[phone] Office Visit Level 4 [facility], [address], [place], [address], [place] tel:[phone] Maxwell CVM Follow Up Visit (chief complaint)ge neral (chief complaint) Myocardial bridgeType 2 diabetes mellitus with complication , without long-term current use of insulinCAD in [place] arteryHTN, goal below 130/80Hyperl ipidemia LDL goal <70Non-rheum atic tricuspid valve insufficienc y Yohannes Rice. [facility], [address], [place], [place], [address], [place]. tel:[phone] Referring Provider: Dwayne Sheffield APN, [facility] [address], [place], [address]. tel:[phone] No Charge EM Office Visit Level 1 [facility], [address], [place], [address], [place] tel:[phone] Maxwell CVM Essential (primary) hypertension 7 Vasile Polk. [facility], [address], [place], [place], [address], [place]. tel:[phone] Referring Provider: Felicitas Bliss, [facility] [address], [place], [address]. tel:[phone] Office Visit Level 4 [facility], [address], [place], [address], [place] tel:[phone] Samuel CVM CAD (chief complaint) CAD in [place] arteryPure hypercholest erolemia, unspecifiedM etabolic syndromeSlee p apneaType 2 diabetes mellitus without complication s 7 Vasile Polk. [facility], [address], [place], [place], [address], [place]. tel:[phone] Referring Provider: Felicitas Bliss, [facility] [address], [place], [address]. tel:[phone] No Charge EM Office Visit Level 1 [facility], [address], [place], [address], [place] tel:[phone] Samuel CVM No Information 6 Vasile Polk. [facility], [address], [place], [place], [address], [place]. tel:[phone] Referring Provider: Felicitas Bliss, [facility] [address], [place], [address]. tel:[phone] Office Visit Level 4 [facility], [address], [place], [address], [place] tel:[phone] Maxwell CVM CAD (chief complaint)Ch est Pain (chief complaint)ge neral (chief complaint) Myocardial bridgeCAD in [place] arteryChest pain in adultMorbid obesity due to excess caloriesType 2 diabetes mellitus with complication , without long-term current use of insulin 6 Yohannes Rice. [facility], [address], [place], [place], [address], [place]. tel:[phone] Referring Provider: Dwayne Sheffield APN, [facility] [address], [place], [address]. tel:[phone] [facility], [address], [place], [address], [place] tel:[phone] Samuel CVM No Information Vasile Polk. [facility], [address], [place], [place], [address], [place]. tel:[phone] Referring Provider: Felicitas Bliss, [facility] [address], [place], [address]. tel:[phone] [facility], [address], [place], [address], [place] tel:[phone] DX Samuel CVM Other forms of chronic ischemic heart disease No Information Referring Provider: Felicitas Bliss, [facility] [address], [place], [address]. tel:[phone] [facility], [address], [place], [address], [place] tel:[phone] DX Samuel CVM Heart disease, unspecifiedA bnormal result of cardiovascul ar function study No Information Referring Provider: Felicitas Bliss, [facility] [address], [place], [address]. tel:[phone] Office Visit Level 4 [facility], [address], [place], [address], [place] tel:[phone] Maxwell CVM Dyspnea (chief complaint)Ch est Pain (chief complaint) Type 2 diabetes mellitus without complication sSleep apneaMetabol ic syndromeChes t painHeart murmur Vasile Polk. [facility] , [address], [place], [place], [address], [place]. tel:[phone] Referring Provider: Felicitas Bliss, [facility] [address], [place], [address]. tel:[phone] [facility], [address], [place], [address], [place] tel:[phone] Samuel CVM No Information 200 9 Vasile Polk. [facility], [address], [place], [place], [address], [place]. tel:[phone] Referring Provider: Felicitas Bliss, [facility] [address], [place], [address]. tel:[phone] [facility], [address], [place], [address], [place] tel:[phone] Samuel CVM Abnormal result, function study, CV NOSHyperchol esterolemia, pureHyperten jazmín, benign essential Sep-2 9 Vasile Polk. [facility], [address], [place], [place], [address], [place]. tel:[phone] Referring Provider: Felicitas Bliss, [facility] [address], [place], [address]. tel:[phone] [facility], [address], [place], [address], [place] tel:[phone] DX Samuel CVM No Information Sep-0 9 Vasile Polk. [facility], [address], [place], [place], [address], [place]. tel:[phone] Referring Provider: Felicitas Bliss, [facility] [address], [place], [address]. tel:[phone] [facility], [address], [place], [address], [place] tel:[phone] DX Samuel CVM No Information Sep-0 3200 9 No Information Referring Provider: Felicitas Bliss, [facility] [address], [place], [address]. tel:[phone] [facility], [address], [place], [address], [place] tel:[phone] Maxwell CV Pain, chest NECHyperchol esterolemia, pureHyperten jazmín, benign essential 9 Vasile Polk. [facility] , [address], [place], [place], [address], [place]. tel:[phone] Referring Provider: Leticia Bailey, [address], [facility]. tel:[phone] [facility], [address], [place], [address], [place] tel:[phone] Samuel CVM No Information 6 Bill Frazier . [facility] , [address], [place], [place], [address], [place]. tel:[phone] Referring Provider: Leticia Bailey, [address], [facility]. tel:[phone] Family History Family Member Type Diagnosis Age At Onset Father Problem (finding) coronary arterioscleros is Father Problem (finding) PTCA Father Problem (finding) [place] 64 Father Problem (finding) defibrillator implanted Father Problem (finding) Stent Immunizations Vaccine Date Status Comments COVID- Modern administered Source: [facility] Unspecified COVID-19 Moderna administered Source: [facility] Unspecified Payers Payer name Insurance type Covered libertarian ID Authoriza tion(s) Medicare [place] [id number] [facility] [id number] Social History Type Description Quantity Date Captured Comments Alcohol Use Details No Caffeine Use Details coffee and soda 1 cup per day 2024 Tobacco Use Status Never smoked tobacco 2024 Smoking Status Never smoker Non-Smoking Tobacco Use Details : No Details Available : No Details Available Sex Female Vital Signs Date / Time: Height Weight BMI Pulse Rate Blood Pressure Temperature Respiratory Rate Body Surface Area Head Circumference Head Circ. Percentile Wt./Kleber. Percentile BMI percentile Pulse Ox Inhaled Ox 9:15 AM 62.00 in 112.491 kg (248.00 lbs) 45.3 6 kg/m eter (2) 76 /min 106/73 mm[Hg] 16 /min 2.22 meter(2) Chief Complaint And Reason For Visit From encounter dated '10/10/2024 09:15'. cardiovascular evaluation (chief complaint). Description: The symptoms are reported as being mild. Reason For Referral Reason For Referral No Information Plan Of Treatment Date Type Action Status Appointment Joann Foster BOOKED Appointment Joann Foster BOOKED Future Order: Radiology Order Nu clear PET Regadenoson (PT), Appointment on: , Collected on: Ordered Future Order: Radiology Order Nu clear Regadenoson One Day ([place]), Appointment on: , Collected on: , Sent on: Sent Future Order: Radiology Order Ec ho Complete ([place]), Appointment on: , Collected on: , Sent on: Sent History Of Present Illness Encounter Date Complaint History Of Prese nt Illness cardiovascular evaluation The sy mptoms are reported as being mild. CAD The patient visi ts the office to be evaluated for coronary artery disease (CAD). No Angina reported. The patient is currently on the following: DARIELA inhibitor or ARB (lisinopril 10 mg tablet), Aspirin and Other Anti-thrombotics (aspirin 81 mg tablet,delayed release), Beta Esmer Therapy (metoprolol succinate ER 25 mg tablet,extended release 24 hr), Lipid Lowering (Crestor 20 mg tablet, ezetimibe 10 mg tablet, [place]-3 350 mg-235 mg-90 mg-597 mg capsule,delayed release). The patient is compliant with medical therapy. Cardiovascular Review She has de la o d no chest discomfort suggestive of ischemia. The patient denies orthopnea, PND, CHILD, or edema. Ms. Foster has not had palpitations, syncope or near syncope. She denies claudication. There is no discoloration or ulceration of the lower extremities. She has had no TIA or stroke-like symptoms. The patient has a positive history of ALEJANDRO (Obstructive Sleep Apnea). cardiovascular evaluation The sy mptoms are reported as being mild. CAD The patient visi ts the office to be evaluated for coronary artery disease (CAD). The pain is classified as Malagasy Class II: Slight limitation of ordinary activity. The patient is currently on the following: DARIELA inhibitor or ARB (lisinopril 10 mg tablet), Aspirin and Other Anti-thrombotics (aspirin 81 mg tablet,delayed release), Beta Esmer Therapy (metoprolol succinate ER 25 mg tablet,extended release 24 hr), Lipid Lowering (Crestor 20 mg tablet, ezetimibe 10 mg tablet, [place]-3 350 mg-235 mg-90 mg-597 mg capsule,delayed release). Cardiovascular Review She has de la o d no chest discomfort suggestive of ischemia. Ms. Foster has SOB. Myocardial bridge The symptoms a re reported as being mild. Follow Up Visit The symptoms are reported as being mild. CAD The patient is e valuated for CAD. The patient presented with chest pain. Associated quality is sharp. The pain is classified as Malagasy Class III: Marked limitation of ordinary physical activity. The are no significant aggravating factors. The patient is currently on the following: DARIELA inhibitor or ARB (lisinopril 10 mg tablet), Aspirin and Other Anti-thrombotics (aspirin 81 mg tablet,delayed releas), Beta Esmer Therapy (metoprolol succinate ER 25 mg table), Lipid Lowering (Crestor 20 mg tablet, ezetimibe 10 mg tablet). She is compliant with medical therapy. The patient is tolerating the medications well. The medications have not changed since the last evaluation. There are lab results available for the following: total cholesterol, LDL and glucose. Cardiovascular Review The patien t has symptoms suggestive of atypical chest pain. The patient denies orthopnea, PND, CHILD, or edema. Ms. Foster has not had palpitations, syncope or near syncope. She denies claudication. There is no discoloration or ulceration of the lower extremities. She has had no TIA or stroke-like symptoms. The patient has no symptoms attributable to valvular heart disease. CAD The patient is e valuated for CAD. The patient is currently on the following: DARIELA inhibitor or ARB (lisinopril 10 mg tablet), Aspirin and Other Anti-thrombotics (aspirin 81 mg tablet,delayed releas), Beta Esmer Therapy (metoprolol succinate ER 25 mg table), Lipid Lowering (Crestor 20 mg tablet, ezetimibe 10 mg tablet). She is compliant with medical therapy. The patient is tolerating the medications well. The medications have not changed since the last evaluation. There are lab results available for the following: total cholesterol, LDL and glucose. Cardiovascular Review She has de la o d no chest discomfort suggestive of ischemia. Ms. Foster has CHILD. Ms. Foster has not had palpitations, syncope or near syncope. She denies claudication. There is no discoloration or ulceration of the lower extremities. She has had no TIA or stroke-like symptoms. The patient has no symptoms attributable to valvular heart disease. CAD The patient is e valuated for CAD. The patient presented with shortness of breath. The pain is classified as Malagasy Class II: Slight limitation of ordinary activity. The patient is currently on the following: DARIELA inhibitor or ARB (lisinopril 10 mg tablet), Aspirin and Other Anti-thrombotics (aspirin 81 mg tablet,delayed releas), Beta Esmer Therapy (Toprol XL 25 mg tablet,extended rel), Lipid Lowering (simvastatin 40 mg tablet). Cardiovascular Review She has de la o d no chest discomfort suggestive of ischemia. Ms. Foster has SOB. Ms. Foster has not had palpitations, syncope or near syncope. She denies claudication. There is no discoloration or ulceration of the lower extremities. She has had no TIA or stroke-like symptoms. The patient has no symptoms attributable to valvular heart disease. Follow Up Visit The symptoms are reported as being mild. Follow Up Visit The symptoms are reported as being moderate. Follow Up Visit The symptoms are reported as being mild. General She has had no c hest discomfort suggestive of ischemia. Ms. Foster has SOB. Ms. Foster has not had palpitations, syncope or near syncope. The patient has no symptoms attributable to valvular heart disease. CAD The patient visi ts the office to be evaluated for coronary artery disease (CAD). The patient presented with chest pain. The patient is currently on the following: DARIELA inhibitor or ARB (lisinopril 10 mg tablet), Aspirin and Other Anti-thrombotics (aspirin 81 mg tablet,delayed releas), Beta Esmer Therapy (Toprol XL 25 mg tablet,extended rel), Lipid Lowering (simvastatin 20 mg tablet). She is compliant with medical therapy. Chest Pain CAD The patient visi ts the office to be evaluated for coronary artery disease (CAD). The patient presented with chest pain. The pain is classified as Malagasy Class II. The patient is currently on the following: DARIELA inhibitor or ARB (Lotrel 2.5 mg-10 mg capsule), Aspirin and Other Anti-thrombotics (aspirin 81 mg tablet,delayed releas), Beta Esmer Therapy (Toprol XL 25 mg tablet,extended rel), Lipid Lowering (simvastatin 40 mg tablet). Chest Pain The patient comp lains of chest discomfort. The patient rates the pain as moderate to severe. The discomfort is located in the parasternal area and left chest. The pain does not radiate. The patient describes the pain as aching and deep in chest. There are no significant aggravating factors. The pain is relieved by nonnarcotic analgesics. The discomfort is increasing in frequency. general The patient has symptoms suggestive of atypical chest pain. The patient denies orthopnea, PND, CHILD, or edema. Ms. Foster has not had palpitations, syncope or near syncope. She denies claudication. There is no discoloration or ulceration of the lower extremities. She has had no TIA or stroke-like symptoms. The patient has no symptoms attributable to valvular heart disease. Dyspnea The patient visi ts the office to be evaluated for dyspnea (shortness of breath). No further information has been recorded on HPI Dyspnea. The symptoms worsen with activities of daily living. last known Echo (EF 0.77) - 12/28/2008. Chest Pain Chest Pain The patient comp lains of chest discomfort. The discomfort is located in the precordial area. The patient describes the pain as sharp. There are no significant aggravating factors. The patient states nothing seems to relieve the pain. It is associated with dyspnea. Functional Status Date Functional Assessmen t No Information Medications Administered Medication Instructions Dosage Effective Dates (start - stop) Status Comments diltiazem CD 120 mg capsule,extended release 24 hr take 1 capsule by oral route every day 120 MG - No Longer Active Instructions Date Instruction Additional Infor georgette PCP Wellness Visit PCP Wellness Visit PCP Wellness Visit Healthy Choice Educational Mater ials PCP Wellness Visit Healthy Choice Educational Mater ials PCP Wellness Visit PCP Wellness Visit Healthy Choice Educational Mater ials Healthy Food Choices Educational Materials Assessments Type Assessment Date No Information Patient Care Teams Name Effective Dates (start - stop) Status Members No Information
--- OUTSIDE RECORDS SUMMARY | 2024-11-27 12:35 | XMS_ITS | Clinical Summary ---
Author Organization [facility] Address [address] [place] [address] Care Team Providers Care Parker Name Role Phone Al Frias MD Primary Care Provider [phone] Source Comments [facility],non-owned Affiliates and Associated Physician Practices is amultiple site organization consisting of ambulatory clinics and hospital sitesin [place], [place], [place] and [place]. This disclosure is being madepursuant to the Care Everywhere program and may not contain all information available regarding this patient. Last updated 18.[facility] Allergies No known active allergies Medications * Be aware that medications may not be up to date on this document. Alwaysverify current medications with the patient. methotrexate 2.5 MG tablet Take 1 (one) tablet by mouth as directed 5 pills per day Active ezetimibe (Zetia) 10 MG tablet Take 1 (one) tablet by mouth once daily 10/30/19 25 Active losartan (Cozaar) 25 MG tablet Take 1 (one) tablet by mouth once daily Active meloxicam (Mobic) 7.5 MG tablet Take 1 (one) tablet by mouth once daily Active morphine IR (MSIR) 15 MG tablet Take 1 (one) tablet by mouth every 12 hours 10/07/19 25 Active omeprazole (PriLOSEC) 20 MG capsule Take 1 (one) capsule by mouth 07/15/19 23 Active predniSONE (Deltasone) 5 MG tablet Take 1 (one) tablet by mouth as directed 1-3 per day Active verapamil (Isoptin) 40 MG tablet Take 1 (one) tablet by mouth 3 times daily 05/16/20 23 Active traMADol (Ultram) 50 MG tablet Take 1 (one) tablet by mouth 2 times daily 10/09/19 25 Active Wegovy 0.5 MG/0.5ML pen Inject 0.5 (one-half) mg subcutaneously every 7 days (once a week) 03/23/20 24 Active gabapentin (Neurontin) 300 MG capsule Take 1 (one) capsule by mouth 4 times daily Active baclofen (Lioresal) 10 MG tablet Take 1 (one) tablet by mouth nightly as needed Active sulfaSALAzine EC (Azulfidine Entab) 500 MG tablet Take 1 (one) tablet by mouth 3 times daily 10/28/19 25 Active atorvastatin (Lipitor) 20 MG tablet Take 1 (one) tablet by mouth once daily Active folic acid (Folvite) 1 MG tablet Take 1 (one) tablet by mouth as directed Active Cosentyx Sensoready Pen 150 MG/ML auto-injector Inject 150 (one hundred fifty) mg subcutaneously every 28 days 11/03/19 25 Active vitamin D3 (Cholecalcifer ol) 25 MCG (1000 UNITS) tablet Take 5 (five) tablets by mouth once daily Active adalimumab (Humira, 2 Pen,) 40 MG/0.4ML injection 025 Discontin ued(Tx Complete) Active Problems Problem Noted Date Diagnosed Date Anxiety 11/07/2024 Arthritis 11/07/2024 Body mass index (BMI) 45.0-49.9, adult Carpal tunnel syndrome 11/07/2024 Hyperlipidemia 11/07/2024 Hypertensive disorder 11/07/2024 Insomnia 11/07/2024 Wasp sting 11/07/2024 Overweight 01/09/2023 Ankylosing spondylitis 03/03/2021 Encounters Date Type Department Care Team Description 11/07/2024 2:25 PM CDT Ancillary Procedure [facility] - Radiology [address] [place] [id number] Lesly Moe PA-C Bilateral hip pain 11/07/2024 2:00 PM CDT Office Visit [facility] [id number] [place] [address], [address] [place] [address] Payal, Lesly M, PA-C Bilateral hip pain (Primary Dx) from Last 3 Months Social History Tobacco Use Types Packs/Day Years Used Date Smoking Tobacco: Never Assessed Comments Unknown Sex and Gender Information Value Date Recorded Sex Assigned at Female 10/24/2023 11:28 AM CDT 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 Gender Identity Female 10/24/2023 11:28 AM CDT Sexual Orientation Something else 10/24/2023 11 :28 AM CDT Last Filed Vital Signs Vital Sign Reading Time Taken Comments Blood Pressure - - Pulse - - Temperature - - Respiratory Rate - - Oxygen Saturation - - Inhaled Oxygen Concentration - - Weight 152 kg (335 lb) 11/07/2024 2:42 PM CDT Height 152.4 cm (5') 11/07/2024 2:42 PM CDT Body Mass Index 65.43 11/07/2024 2:42 PM CDT Plan of Treatment Health Maintenance Due Date Last Done Comments BONE DENSITY TESTING 1959 COLON MONITORING 1959 COLONOSCOPY - COLON CA SCREENING 1959 CT COLONOGRAPHY - COLON CA SCREENING 1959 FIT - COLON CA SCREENING 1959 FLEX SIG - COLON CA SCREENING 1959 MAMMOGRAM 1959 HIV SCREENING 1974 HEPATITIS C SCREENING 04/21/1977 DTAP/TDAP/TD VACCINES (1 - Tdap) 1978 PAP SMEAR 1980 PNEUMOCOCCAL VACCINE 50+ (1 of 1 - PCV) 2009 ZOSTER VACCINE (1 of 2) 2009 Respiratory Syncytial Virus (RSV) Vaccine Pt: or over 60 yrs (1 - Risk 60-74 years 1-dose series) 2019 COVID-19 VACCINE ( - 2023-2 5 season) 2023 03/21/2021, 07/31/2020, 07/03/2020 DEPRESSION SCREENING 04/27/2024 SCREENING FOR DIABETES 11/07/2024 1, 03/01/2021, 03/01/2021 INFLUENZA VACCINE (#1) 2024 1, 02/12/2015 COLOGUARD (AGES 45-75) - COL ON CA SCREENING 10/05/2026 10/06/2023 Colorectal Cancer Screening 10/05/2026 HEPATITIS B VACCINE Aged Out No longe r eligible based on patient's age to complete this topic HIB VACCINE Aged Out No longer eligi ble based on patient's age to complete this topic HPV VACCINE Aged Out No longer eligi ble based on patient's age to complete this topic MENINGOCOCCAL (Group B) VACCINE SHARED DECISION-MAKING Aged Out No longer eligible based on patient's age to complete this topic MENINGOCOCCAL GROUPS A/C/Y/W VACCINE Aged Out No longer eligible b ased on patient's age to complete this topic Procedures Procedure Name Priority Date/Time Associated Diagnosis Comments XR PELVIS W BILAT HIP 2VW Routine 11/07/2024 2:35 PM CDT Bilateral hip pain from Last 3 Months Results * XR Pelvis W Bilat Hip 2Vw (11/07/2024 2:35 PM CDT) Narrative [facility] [place] [address] - 11/07/2024 2:35 PM CDT Please see progress note in Epic for results. us Lesly Moe PA-C DIAGNOSTIC IMAGING ORDERAB LES Final Result [facility] [address] from Last 3 Months Insurance [facility] Care Teams Parker Relationship Specialty Start Date End Date Al Frias MD [phone] [phone] PCP - General Internal Medicine 11/07/24
[2024-11-27 12:55] LABS: CRP 2.9 mg/dL (<1.0)
[2024-11-27 13:09] LABS: Macrocytosis 2+ (NORMAL); Schistocytes None Seen
[2024-11-27 13:12] LABS: Alanine Aminotransferase 36 U/L (6-35); Albumin Level 3.9 g/dL (3.5-5.1); Alkaline Phosphatase 71 U/L (38-126); Anion Gap 6 mmol/L (4-12); Aspartate Amino Transferase 87 U/L (14-36); Bilirubin,Total 0.6 mg/dL (0.2-1.3); Blood Urea Nitrogen 16 mg/dL (7-17); Calcium 9.4 mg/dL (8.4-10.2); Carbon Dioxide 31 mmol/L (22-30); Chloride 98 mmol/L (98-107); Estimated CRCL calculation 62 ml/min; Estimated Glomerular Filt Rate 48; Glucose 122 mg/dL (65-110); Magnesium 1.9 mg/dL (1.6-2.3); Potassium 4.0 mmol/L (3.4-5.0); Sodium 135 mmol/L (137-145); Total Protein 6.9 g/dL (6.3-8.2)
[2024-11-27] MEDS: dilTIAZem 100 MG/100 ML 100 MG/100 ML BAG IV CONT (13:21)
[2024-11-27 13:39] LABS: Thyroid Stimulating Hormone Reflex 0.294 uIU/mL (0.465-4.68)
[2024-11-27 13:58] LABS: INR 1.0; Prothrombin Time 13.1 Seconds (11.1-14.7)
[2024-11-27 13:59] LABS: Partial Thromboplastin Time 29.6 Seconds (22.3-36.8)
[2024-11-27 14:13] LABS: Free T4 Free Thyroxine Reflex 1.59 ng/dL (0.78-2.19)
[2024-11-27 15:00] LABS: Total Triiodothyronine (T3) 0.76 NG/ML (0.82-1.58)
--- NOTE | 2024-11-27 15:07 | P.HP_ITS ---
H&P: HPI History of Present Illness Date/Time: 11/27/24 15:07 Chief Complaint: Fall Narrative: 64 y/o F with PMH of HLD and HTN presents here with a ground level fall. The patient presents here from home via EMS on 11/27 for further evaluation of right hip pain post ground level fall. She reports she rolled out of bed while sleeping landing on her right side. She endorses a head strike. Denies loss of consciousness. Upon arrival to the emergency department the patient was found to be tachycardic with a heart rate ranging between 114 and 163. EKG revealed atrial flutter RVR. She denies any previous history of dysrhythmia. She denies any associated chest pain, shortness of breath, dizziness, palpitations, diaphoresis, weight gain, lower extremity edema, nausea, or vomiting. She does report she recently had the Flu or food poisoning earlier this week but her symptoms had resolved by . Initial VS at presentation: 97.9? F, HR 114, R 14, 152/85, and 99% on RA. ED workup showed: WBC 11.0, no anemia, normal coags, sodium 135, creatinine 1.14 and GFR 48, glucose 122, lactic 1.8, CRP 2.9 met TSH 0.294 with a normal T4 and a mildly reduced T3. Hip/pelvic XR showed no acute fracture or dislocation per my personal review. Head CT showed no fracture or acute intracranial process, small old lacunar infarct of the left internal capsule and mild scattered white matter hypoattenuation, 1.4 cm calcified meningioma overlying the right occipital lobe. Review of Systems Review of Systems: All systems reviewed & are unremarkable except as noted in HPI and below [facility] Past Medical History Medical History (Updated 11/27/24 @ 20:50 by Dominique Mensah APRN) Hypertension Anxiety Rheumatoid arthritis Ankylosing spondylitis Surgical History Surgical History (Updated 11/27/24 @ 20:47 by Dominique Mensah APRN) History of hysterectomy History of elbow surgery History of bilateral knee replacement History of bladder surgery Social History Social History Smoking status: Never smoker Alcohol intake: never Substance use: never Lack of Transportation: No Lack of Food: Never True Current Housing: I Have Housing Concerned About Future Housing: No Difficulty Paying Gas/Electric Bills: No Difficulty Paying for Meds: No Currently Unemployed: No Education: Trade/Vocational Certificate Difficulty w/ Childcare or Family Care: No Spiritual care concerns: No Meds Home Medications and Allergies Home Medications ?Medication ?Instructions ?Recorded ?Confirmed ?Type atorvastatin 20 mg tablet 20 mg PO QPM 11/27/24 11/27/24 History baclofen 10 mg tablet 10 mg PO QAM 11/27/24 11/27/24 History cholecalciferol (vitamin D3) 50 50 mcg PO DAILY 11/27/24 11/27/24 History mcg (2,000 unit) capsule (Vitamin D3) ezetimibe 10 mg tablet 10 mg PO DAILY 11/27/24 11/27/24 History folic acid 1 mg tablet 1 mg PO DAILY 11/27/24 11/27/24 History gabapentin 300 mg capsule 300 mg PO Q8H 11/27/24 11/27/24 History losartan 25 mg tablet 25 mg PO HS 11/27/24 11/27/24 History meloxicam 7.5 mg tablet 7.5 mg PO DAILY 11/27/24 11/27/24 History methotrexate sodium 2.5 mg tablet 5 mg PO WEEKLY 11/27/24 11/27/24 History morphine 15 mg tablet,extended 15 mg PO BID 11/27/24 11/27/24 History release omeprazole 20 mg capsule,delayed 20 mg PO DAILY 11/27/24 11/27/24 History release prednisone 5 mg tablet 5 mg PO PRN PRN arthritis 11/27/24 11/27/24 History secukinumab 150 mg/mL subcutaneous 150 mg subcut MONTHLY 11/27/24 11/27/24 History pen injector (Cosentyx Pen 300 mg/2 pens () sulfasalazine 500 mg 0.5 g PO BID 11/27/24 11/27/24 History tablet,delayed release tramadol 50 mg tablet 100 mg PO TID 11/27/24 11/27/24 History verapamil 40 mg tablet 40 mg PO TID 11/27/24 11/27/24 History Allergies Allergy/AdvReac Type Severity Reaction Status Date / Time No Known Allergies Allergy Verified 11/27/24 18:58 Vital Signs Vital Signs - 24 hr 11/27/24 10:41 11/27/24 11:34 11/27/24 11:47 Temperature 97.9 F Pulse Rate 114 H 156 H 163 H Respiratory Rate 14 14 17 Blood Pressure 152/85 H 140/105 H Pulse Oximetry 99 Oxygen Delivery Room Air 11/27/24 11:48 11/27/24 12:17 11/27/24 12:18 Temperature Pulse Rate 144 H 159 H 166 H Respiratory Rate 16 8 L 12 Blood Pressure 148/95 H Pulse Oximetry Oxygen Delivery 11/27/24 12:22 11/27/24 12:30 11/27/24 12:31 Temperature Pulse Rate 150 H 135 H 146 H Respiratory Rate 24 H 12 Blood Pressure 149/130 H Pulse Oximetry Oxygen Delivery 11/27/24 12:45 11/27/24 13:21 11/27/24 14:25 Temperature Pulse Rate 120 H 147 H 130 H Respiratory Rate 19 Blood Pressure Pulse Oximetry Oxygen Delivery Exam Const: General: comfortable and no acute distress Other: , female, obese body habitus, nontoxic appearance HENMT: Face/Nose/Sinus: Normal nares present Mouth: Yes moist mucous membranes Eyes: General: appearance normal, both eyes and all related structures Sclera: sclerae normal Pupils: Equal, round and reactive pupils present EOM: EOMs intact bilaterally Resp: Effort & Inspection: normal respiratory effort Auscultation: clear to auscultation bilaterally Cardio: Rate: tachycardic Rhythm: abnormal rhythm Other: No murmur. GI: Other: Abdomen soft, nondistended, nontender. Normoactive bowel sounds in all quadrants. Skin: General skin exam: normal color and no rashes or lesions noted Wounds: no wounds Neuro: Speech: normal speech Motor exam (neuro): 5/5 motor strength present throughout Sensory Exam: normal sensation Other: A&O x4 Extrem: General: normal to inspection Psych: Mental Status: mental status grossly normal Affect: normal affect Other: Good insight and judgment, pleasant H&P: Results Labs Labs: Short CBC 11/27/24 Range/Units 12:23 WBC 11.0 H (4.5-10.0) K/mm3 Hgb 14.1 (12.0-15.0) g/dL Hct 40.0 (37.0-47.0) % Plt Count 325 (150-375) k/mm3 BMP 11/27/24 11/27/24 11/27/24 12:46 12:46 12:46 Sodium Cancelled 135 L Potassium Cancelled 4.0 Chloride Cancelled Carbon Dioxide BUN Creatinine Glucose Calcium 11/27/24 11/27/24 11/27/24 12:46 12:46 12:46 Sodium Potassium Chloride 98 Carbon Dioxide Cancelled 31 H BUN Cancelled 16 Creatinine Cancelled Glucose Calcium 11/27/24 11/27/24 11/27/24 12:46 12:46 12:46 Sodium Potassium Chloride Carbon Dioxide BUN Creatinine 1.14 H Glucose Cancelled 122 H Calcium Cancelled 9.4 Liver Function 11/27/24 11/27/24 11/27/24 Range/Units 12:46 12:46 12:46 Total Bilirubin Cancelled 0.6 AST Cancelled 87 H ALT Cancelled Alkaline Phosphatase Albumin 11/27/24 11/27/24 11/27/24 Range/Units 12:46 12:46 12:46 Total Bilirubin AST ALT 36 H Alkaline Phosphatase Cancelled 71 Albumin Cancelled 3.9 Assessment and Plan Assessment and plan (1) Atrial flutter with rapid ventricular response: Code(s): I48.92 - Unspecified atrial flutter Status: Acute Assessment and Plan: - initial EKG showed atrial flutter/tachycardia with RVR, rate 159. Repeat post metoprolol showed better defined atrial flutter/tachycardia with RVR, rate 117. - no previous history of dysrhythmia - initially given metoprolol 5 mg IV (HR 160s -> 120/130s). Now started on a diltiazem gtt with 10 mg IV push x2. HR remains in the 130s. Will increase drip and give additional 10 mg IV. - TSH 0.294, T4 1.59, T3 0.76. Will need to repeat outpatient in 3 months. - cardiology consulted - [facility]: 3 - admission to IMU and telemetry monitoring (2) Hip injury: Qualifiers: Encounter type: initial encounter Laterality: right Qualified Code(s): S79.911A - Unspecified injury of right hip, initial encounter Code(s): S79.919A - Unspecified injury of unspecified hip, initial encounter Status: Acute Assessment and Plan: - R hip pain s/p fall from bed, rolled out of bed while asleep - hip/pelvic XR negative for fracture or dislocation per my review - check UA - analgesics p.r.n. (3) Acute UTI: Code(s): N39.0 - Urinary tract infection, site not specified Status: Acute Assessment and Plan: - UA: Cloudy, 2+ protein, trace ketones, 2+ bilirubin, 1+ leuk esterase, 21-50 RBC, 11-20 WBC, 4+ bacteria with moderate epithelial cells. Infection versus contaminant. - UC pending - no previous micro available for review - started on Ceftriaxone on 11/27 (4) Hypertension: Qualifiers: Hypertension type: primary hypertension Qualified Code(s): I10 - Essential (primary) hypertension Code(s): I10 - Essential (primary) hypertension Status: Chronic Assessment and Plan: - chronic, currently 134/117 - continue home medications: Losartan, verapamil - monitor Plan Diet: Heart healthy GI Prophylaxis: n/a DVT Prophylaxis: Lovenox SQ IV fluids: 2L bolus in ED Lines/Tubes: Peripheral IV Code Status: Full code Quality VTE Prophylaxis VTE prophylaxis: pharmacologic ordered Hospitalist MIPS Advance Care Plan I have confirmed that the patient's Advanced Care Plan is present, code status is documented, or surrogate decision maker is listed in patient medical record.: Yes Medication Reconciliation I have utilized all available resources to obtain, update and review the patients current medications (includes all prescriptions, OTC, herbals, cannabis, and nutritional supplements).: Yes
[2024-11-27] MEDS: HYDROmorphone HCL INJ (*CRX) 2 MG/ML VIAL 0.5 MG IV PUSH (15:26)
[2024-11-27 15:57] LABS: Add Urine Microscopic? YES; Appearance Urine Cloudy (Clear); Glucose Urine UA Negative (Negative); Leukocyte Esterase Ur 1+ LEU/UL (Negative); Need Manual Microscopic Reviewed; Nitrate Urine Negative (Negative); Non Pathogenic Casts 0-2; Specific Grav Ur 1.028 (1.001-1.035)
--- NOTE | 2024-11-27 16:43 | PC.NURSE ---
Patient placed in hospital bed for comfort. RN called for dinner tray and gave patient water.
[2024-11-27] MEDS: cefTRIAXone 1 GM in SODIUM CHLORIDE 0.9% IV 50 ML 100 ML IVPB (17:40)
--- NOTE | 2024-11-27 18:45 | PC.NURSE ---
Patient from ER Tele applied dilt drip verified
[2024-11-27] MEDS: ENOXAPARIN 40 MG/0.4 ML SYRINGE SUB-Q (20:51)
[2024-11-27] MEDS: LOSARTAN POTASSIUM 25 MG TABLET PO (20:56)
[2024-11-27] MEDS: ATORVASTATIN 20 MG TABLET PO (20:56)
[2024-11-27] MEDS: traMADol HCL (*CRX) 50 MG TABLET 100 MG PO (20:56)
[2024-11-27] MEDS: GABAPENTIN 300 MG CAPSULE 600 MG PO (20:57)
[2024-11-27] MEDS: dilTIAZem 100 MG/100 ML 100 MG/100 ML BAG 15 MG IV CONT (21:00)
[2024-11-28] VITALS (28 sets, daily range): BP systolic 108–146; BP diastolic 52–87; PULSE 68–103; RESP 15–18; TEMP 36.4–37.1; O2SAT 92–98
--- NOTE | 2024-11-28 | ECHO_ITS ---
Patient Info Name: Joann Car Age: 64 years : 1960 Gender: Female Ht: 62 in Wt: 340 lbs BSA: 2.71 m2 HR: 91 bpm BP: 119 / 65 mmHg Technical Quality: Fair Exam Date: 11/28/2024 10:11 AM Patient Status: I Admit Date: 11/27/2024 Exam Type: CA echo dop color flow w con Complete two-dimensional, color flow and Doppler transthoracic echocardiogram is performed with contrast to opacify the left ventricle and to improve the deliniation of the left ventricle endocardial borders. Staff Referring Physician: Dwayne Ballard Ship Washer: Sadie Michael Attending Provider: Matthew Davenport Contrast/Agitated Saline Contrast/Ag. Saline: Definity Amount: 2.00 ml Administered By: Sadie Michael Existing IV Access: Yes IV Access Condition: patent with no signs of infiltration Summary 1. Left ventricular systolic function is normal, estimated at 65-70. 2. There is mildly increased left ventricular wall thickness. 3. The left ventricular diastolic function is grade II diastolic dysfunction. Left Ventricle Left ventricular chamber dimension is normal. Left ventricular systolic function is normal, estimated at 65-70. There is mildly increased left ventricular wall thickness. Left ventricular septal wall motion is normal. The left ventricular diastolic function is grade II diastolic dysfunction. Right Ventricle Right ventricular chamber dimension is normal. Right ventricular systolic function is normal. Left Atria Left atrial chamber dimension is normal. Right Atria Right atrial chamber dimension is normal. Aortic Valve The aortic valve is trileaflet. There is no aortic valve sclerosis. There is no aortic valve stenosis. There is no aortic valve regurgitation. Pulmonic Valve The pulmonic valve is normal. There is no pulmonic valve stenosis. There is no pulmonic regurgitation. Mitral Valve The mitral valve has normal leaflets. There is no mitral valve stenosis. There is no mitral valve regurgitation. Tricuspid Valve The tricuspid valve leaflets are normal. There is no significant tricuspid valve stenosis. There is no tricuspid valve regurgitation. Pericardium/Pleural The pericardium appears epicardial fat pad. There is no pericardial effusion. Inferior Vena Cava Not well visualized inferior vena cava. Aorta The aortic root size at the sinus of Valsalva is normal. The prox ascending aorta size is normal. Left Ventricular Outflow Tract Name Value Normal LVOT 2D LVOT Diameter 2.0 cm LVOT Doppler LVOT Peak Velocity 129 cm/s LVOT Peak Gradient 7 mmHg LVOT Mean Gradient 3 mmHg LVOT VTI 21 cm LVOT VTI/AV VTI Ratio 0.7 LVOT Stroke Volume 70 ml LVOT CO 6.3 l/min LVOT CI 2.3 l/min/m2 Pulmonic Valve Name Value Normal RVOT Doppler RVOT Peak Velocity 108 cm/s RVOT Peak Gradient 5 mmHg PV Doppler PV Peak Velocity 134 cm/s PV Peak Gradient 6 mmHg Mitral Valve Name Value Normal MV Diastolic Function MV E Peak Velocity 72 cm/s MV A Peak Velocity 51 cm/s MV E/A 1.4 MV Decel Time (PW) 236 ms MV Annular TDI MV E/e' (Septal) 14.3 MV E/e' (Lateral) 12.3 MV E/e' (Average) 13.3 Aortic Valve Name Value Normal AV Doppler AV Peak Velocity 186 cm/s AV Peak Gradient 14 mmHg AV Mean Gradient 8 mmHg AV VTI 30 cm AV Area (Cont Eq VTI) 2.3 cm2 >=3.0 AV Area (Cont Eq Kyle) 2.3 cm2 AV DI (Kyle) 0.70 AV Regurgitation 2D LVOT Area 3.2 cm2 Ventricles Name Value Normal LV Dimensions 2D/MM IVS Diastolic Thickness (2D) 1.2 cm 0.6-1.0 LVID Diastole (2D) 4.8 cm 3.8-5.2 LVIW Diastolic Thickness (2D) 1.1 cm 0.6-0.9 LVID Systole (2D) 3.0 cm 2.2-3.5 LVOT Diameter 2.0 cm LV Mass (2D Cubed) 200.44 g 67.00-162.00 LV Mass Index (2D Cubed) 74 g/m2 43-95 Relative Wall Thickness (2D) 0.46 <=0.42 LV Fractional Shortening/Ejection Fraction 2D/MM LV Fractional Shortening (2D) 37 % 27-45 LV EF (2D Teichholz) 66 % LV Diastolic Volume (4C MOD) 86 ml LV EF (4C MOD) 76 % LV Diastolic Volume (2C MOD) 67 ml LV EF (2C MOD) 62 % LV Diastolic Volume (BP MOD) 78 ml 46-106 LV Diastolic Volume Index (BP MOD) 29 ml/m2 29-61 LV Systolic Volume (BP MOD) 24 ml 14-42 LV Systolic Volume Index (BP MOD) 9 ml/m2 8-24 LV EF (BP MOD) 69 % 54-74 LV Diastolic Length (4C) 8.1 cm LV Systolic Length (4C) 6.3 cm LV Stroke Volume (4C MOD) 65 ml Atria Name Value Normal LA Dimensions LA Volume (4C A-L) 50 ml LA Volume (BP A-L) 38 ml RA Dimensions RA Systolic Major [place] Length (4C) 4.7 cm 2.2-2.8 RA Area (4C) 13.5 cm2 <=18.0 Report Signatures
[2024-11-28] MEDS: MORPHINE SULFATE (*CRX) 15 MG TABCR PO ×2 (03:34→17:14)
[2024-11-28] MEDS: dilTIAZem 100 MG/100 ML 100 MG/100 ML BAG 15 MG IV CONT ×3 (03:34→10:39)
[2024-11-28 04:36] LABS: Hematocrit 36.0 % (37.0-47.0); Hemoglobin 12.4 g/dL (12.0-15.0); Immature Granulocyte Percent A 0.3 % (0-0.5); Lymphocytes Absolute Auto 1.56 K/mm3 (0.9-3.2); Mean Corpuscular HGB Conc 34.4 g/dl (32-36); Mean Corpuscular Hemoglobin 37.6 pg (26-34); Mean Corpuscular Volume 109.1 fl (80-100); Nucleated Red Blood Cells Absolute Auto 0.030 K/mm3 (0.0-0.012); Nucleated Red Blood Cells Perc 0.4 % (0.0-0.2); Platelet Count Result 295 k/mm3 (150-375); Red Blood Count 3.30 M/mm3 (4.2-5.4); White Blood Count 8.0 K/mm3 (4.5-10.0)
[2024-11-28 05:09] LABS: Alanine Aminotransferase 34 U/L (6-35); Albumin Level 3.7 g/dL (3.5-5.1); Alkaline Phosphatase 84 U/L (38-126); Anion Gap 6 mmol/L (4-12); Aspartate Amino Transferase 96 U/L (14-36); Bilirubin,Total 0.6 mg/dL (0.2-1.3); Blood Urea Nitrogen 21 mg/dL (7-17); Calcium 9.5 mg/dL (8.4-10.2); Carbon Dioxide 32 mmol/L (22-30); Chloride 98 mmol/L (98-107); Estimated CRCL calculation 46 ml/min; Estimated Glomerular Filt Rate 32; Glucose 127 mg/dL (65-110); Magnesium 1.8 mg/dL (1.6-2.3); Potassium 2.9 mmol/L (3.4-5.0); Sodium 136 mmol/L (137-145); Total Protein 6.5 g/dL (6.3-8.2)
[2024-11-28] MEDS: POTASSIUM CHLORIDE 20 MEQ ER TABLET 40 MEQ PO (08:46)
[2024-11-28] MEDS: ENOXAPARIN 40 MG/0.4 ML SYRINGE SUB-Q (08:46)
[2024-11-28] MEDS: BACLOFEN 10 MG TABLET PO (08:46)
[2024-11-28] MEDS: CHOLECALCIFEROL (VITAMIN D3) 25 MCG (1,000 UNITS) TABLET 50 MCG PO (08:46)
[2024-11-28] MEDS: EZETIMIBE 10 MG TABLET PO (08:47)
[2024-11-28] MEDS: FOLIC ACID 1 MG TABLET PO (08:47)
[2024-11-28] MEDS: MELOXICAM 7.5 MG TABLET PO (08:47)
[2024-11-28] MEDS: PANTOPRAZOLE 40 MG TABLET PO (08:47)
[2024-11-28] MEDS: GABAPENTIN 300 MG CAPSULE PO ×2 (08:47→15:25)
[2024-11-28] MEDS: traMADol HCL (*CRX) 50 MG TABLET 100 MG PO ×3 (08:47→20:35)
[2024-11-28] MEDS: MAGNESIUM SULF 1 GM/D5W 100 ML 1 GM/100 ML BAG IVPB (08:48)
--- NOTE | 2024-11-28 10:44 | P.CONCA_ITS ---
Assessment and Plan Assessment and plan (1) Atrial flutter with rapid ventricular response: Code(s): I48.92 - Unspecified atrial flutter Status: Acute Assessment and Plan: This is a new diagnosis. Spontaneously converted to sinus rhythm and remains in sinus rhythm now. * Discontinue diltiazem drip * start low dose metoprolol tartrate 12.5mg b.i.d. * She has a CHADs2 Vasc score of 3 (age, gender, HTN). Anticoagulation is indicated. Will order Eliquis 5mg b.i.d. * Echo pending * Check and replace electrolytes to maintain K+ 4.0, Mag 2.0 * Apnea Link tonight Anticipate discharge tomorrow if heart rate/rhythm remained controlled and echo unremarkable. (2) Hypertension: Qualifiers: Hypertension type: primary hypertension Qualified Code(s): I10 - Essential (primary) hypertension Code(s): I10 - Essential (primary) hypertension Status: Chronic Assessment and Plan: At goal (3) Hypokalemia: Code(s): E87.6 - Hypokalemia Status: Acute Assessment and Plan: K+ 2.9, given 40 mEq KCL x 1. Check BMP tomorrow. History of Present Illness History of Present Illness Consult date/time: 11/28/24 10:44 Requesting physician: Dominique Mensah APRN Consult reason: atrial fibrillation Reason For Visit: afib/aflutter with rvr Narrative: Joann Car is a 64 year old female with hypertension and hyperlipidemia. She presents to hospital after sustaining a ground level fall. Cardiology is consulted for atrial fibrillation rapid ventricular response. Patient denies any cardiac history including any history of arrhythmias. She denies having any palpitations, chest pain, shortness of breath. At the time of my evaluation, she has spontaneously converted to sinus rhythm and does not have any active complaints. Review of Systems 2 Review of Systems: All systems reviewed & are unremarkable except as noted in HPI and below PMFSH Past Medical History Medical History Hypertension Anxiety Rheumatoid arthritis Ankylosing spondylitis Surgical History Surgical History History of hysterectomy History of elbow surgery History of bilateral knee replacement History of bladder surgery Social History Social History Smoking status: Never smoker Alcohol intake: never Substance use: never Lack of Transportation: No Lack of Food: Never True Current Housing: I Have Housing Concerned About Future Housing: No Difficulty Paying Gas/Electric Bills: No Difficulty Paying for Meds: No Currently Unemployed: No Education: Trade/Vocational Certificate Difficulty w/ Childcare or Family Care: No Spiritual care concerns: No Meds Home Medications and Allergies Home Medications ?Medication ?Instructions ?Recorded ?Confirmed ?Type atorvastatin 20 mg tablet 20 mg PO QPM 11/27/24 11/27/24 History baclofen 10 mg tablet 10 mg PO QAM 11/27/24 11/27/24 History cholecalciferol (vitamin D3) 50 50 mcg PO DAILY 11/27/24 11/27/24 History mcg (2,000 unit) capsule (Vitamin D3) ezetimibe 10 mg tablet 10 mg PO DAILY 11/27/24 11/27/24 History folic acid 1 mg tablet 1 mg PO DAILY 11/27/24 11/27/24 History gabapentin 300 mg capsule 300 mg PO Q8H 11/27/24 11/27/24 History losartan 25 mg tablet 25 mg PO HS 11/27/24 11/27/24 History meloxicam 7.5 mg tablet 7.5 mg PO DAILY 11/27/24 11/27/24 History methotrexate sodium 2.5 mg tablet 5 mg PO WEEKLY 11/27/24 11/27/24 History morphine 15 mg tablet,extended 15 mg PO BID 11/27/24 11/27/24 History release omeprazole 20 mg capsule,delayed 20 mg PO DAILY 11/27/24 11/27/24 History release prednisone 5 mg tablet 5 mg PO PRN PRN arthritis 11/27/24 11/27/24 History secukinumab 150 mg/mL subcutaneous 150 mg subcut MONTHLY 11/27/24 11/27/24 History pen injector (Cosentyx Pen 300 mg/2 pens () sulfasalazine 500 mg 0.5 g PO BID 11/27/24 11/27/24 History tablet,delayed release tramadol 50 mg tablet 100 mg PO TID 11/27/24 11/27/24 History verapamil 40 mg tablet 40 mg PO TID 11/27/24 11/27/24 History Allergies Allergy/AdvReac Type Severity Reaction Status Date / Time No Known Allergies Allergy Verified 11/27/24 18:58 Vital Signs Vital Signs - 24 hr 11/27/24 11:34 11/27/24 11:47 11/27/24 11:48 Temperature Pulse Rate 156 H 163 H 144 H Respiratory Rate 14 17 16 Blood Pressure 140/105 H Pulse Oximetry Oxygen Delivery Oxygen Flow Rate 11/27/24 12:17 11/27/24 12:18 11/27/24 12:22 Temperature Pulse Rate 159 H 166 H 150 H Respiratory Rate 8 L 12 Blood Pressure 148/95 H Pulse Oximetry Oxygen Delivery Oxygen Flow Rate 11/27/24 12:30 11/27/24 12:31 11/27/24 12:45 Temperature Pulse Rate 135 H 146 H 120 H Respiratory Rate 24 H 12 19 Blood Pressure 149/130 H Pulse Oximetry Oxygen Delivery Oxygen Flow Rate 11/27/24 12:49 11/27/24 13:00 11/27/24 13:02 Temperature Pulse Rate 127 H 136 H 139 H Respiratory Rate 14 14 18 Blood Pressure 132/87 140/129 H Pulse Oximetry Oxygen Delivery Oxygen Flow Rate 11/27/24 13:15 11/27/24 13:21 11/27/24 14:07 Temperature Pulse Rate 123 H 147 H 141 H Respiratory Rate 19 21 H Blood Pressure Pulse Oximetry Oxygen Delivery Oxygen Flow Rate 11/27/24 14:15 11/27/24 14:25 11/27/24 14:30 Temperature Pulse Rate 128 H 130 H 151 H Respiratory Rate 10 L 15 Blood Pressure Pulse Oximetry Oxygen Delivery Oxygen Flow Rate 11/27/24 14:45 11/27/24 15:16 11/27/24 16:01 Temperature Pulse Rate 137 H 116 H 104 H Respiratory Rate 17 17 23 H Blood Pressure Pulse Oximetry Oxygen Delivery Oxygen Flow Rate 11/27/24 16:37 11/27/24 17:10 11/27/24 17:15 Temperature Pulse Rate 101 H 122 H 130 H Respiratory Rate 15 19 24 H Blood Pressure Pulse Oximetry 94 95 95 Oxygen Delivery Oxygen Flow Rate 11/27/24 18:23 11/27/24 19:07 11/27/24 20:00 Temperature 36.7 C Pulse Rate 775 H 130 H 123 H Respiratory Rate 20 18 Blood Pressure 108/53 L 134/117 H Pulse Oximetry 95 95 Oxygen Delivery Oxygen Flow Rate 11/27/24 20:00 11/27/24 21:00 11/27/24 21:02 Temperature 36.4 C Pulse Rate 90 104 H Respiratory Rate 18 Blood Pressure 134/50 L 134/50 L Pulse Oximetry 95 95 Oxygen Delivery Nasal Cannula Oxygen Flow Rate 3 11/27/24 22:00 11/27/24 23:00 11/27/24 23:00 Temperature Pulse Rate 90 94 94 Respiratory Rate Blood Pressure 104/55 L 104/55 L Pulse Oximetry Oxygen Delivery Oxygen Flow Rate 11/27/24 23:58 11/28/24 00:00 11/28/24 00:00 Temperature 36.5 C Pulse Rate 81 82 Respiratory Rate 18 Blood Pressure 130/65 Pulse Oximetry 95 95 Oxygen Delivery Nasal Cannula Oxygen Flow Rate 3 11/28/24 00:00 11/28/24 02:00 11/28/24 02:00 Temperature Pulse Rate 82 98 93 Respiratory Rate Blood Pressure 130/65 124/78 Pulse Oximetry 96 Oxygen Delivery Oxygen Flow Rate 11/28/24 02:00 11/28/24 03:34 11/28/24 03:34 Temperature Pulse Rate 93 85 85 Respiratory Rate Blood Pressure 124/78 121/52 L 121/52 L Pulse Oximetry Oxygen Delivery Oxygen Flow Rate 11/28/24 03:41 11/28/24 03:46 11/28/24 04:00 Temperature 36.5 C Pulse Rate 103 H 103 H Respiratory Rate 18 Blood Pressure 110/63 110/63 Pulse Oximetry 96 98 Oxygen Delivery Nasal Cannula Oxygen Flow Rate 2 11/28/24 04:00 11/28/24 05:56 11/28/24 06:00 Temperature Pulse Rate 99 88 82 Respiratory Rate Blood Pressure 119/65 Pulse Oximetry Oxygen Delivery Oxygen Flow Rate 11/28/24 06:00 11/28/24 07:45 11/28/24 07:47 Temperature 36.4 C L Pulse Rate 82 84 84 Respiratory Rate 16 Blood Pressure 119/65 108/73 Pulse Oximetry 98 Oxygen Delivery Oxygen Flow Rate 11/28/24 08:00 11/28/24 08:00 11/28/24 08:00 Temperature Pulse Rate 80 80 Respiratory Rate Blood Pressure Pulse Oximetry 97 Oxygen Delivery Nasal Cannula Oxygen Flow Rate 2 11/28/24 09:50 11/28/24 10:00 11/28/24 10:00 Temperature Pulse Rate 84 95 92 Respiratory Rate Blood Pressure Pulse Oximetry Oxygen Delivery Oxygen Flow Rate 11/28/24 10:39 11/28/24 10:39 Temperature Pulse Rate 98 98 Respiratory Rate Blood Pressure Pulse Oximetry Oxygen Delivery Oxygen Flow Rate Exam 2 Const: General: comfortable, no acute distress, alert and awake O rientation/consciousness: patient oriented x3 Other: morbidly obese HENMT: Head: normal to inspection Eyes: General: appearance normal, both eyes and all related structures P upils: Equal, round and reactive pupils present Neck: Neck: normal visual inspection, supple and no JVD Carotids: normal carotid upstroke Resp: Effort & Inspection: normal respiratory effort Auscultation: clear to auscultation bilaterally Cardio: Rate: regular rate Rhythm: regular rhythm Heart sounds: S1 normal heart sound present, S2 normal heart sound present and no murmurs GI: Auscultation: normal bowel sounds Skin: General skin exam: normal color Neuro: General: patient oriented x3 Cranial nerves: Yes Equal, round and reactive pupils present Extrem: General: normal to inspection Psych: Appearance: grossly normal Mental Status: mental status grossly normal Results Labs and Meds 11/28/24 04:03 11/28/24 04:03 Lab results: Cardiac Enzymes 11/27/24 11/27/24 11/28/24 Range/Units 12:46 12:46 04:03 AST Cancelled 87 H 96 H Coagulation 11/27/24 Range/Units 13:33 PT 13.1 (11.1-14.7) Seconds APTT 29.6 (22.3-36.8) Seconds CBC 11/27/24 11/28/24 Range/Units 12:23 04:03 WBC 11.0 H 8.0 (4.5-10.0) K/mm3 RBC 3.69 L 3.30 L (4.2-5.4) M/mm3 Hgb 14.1 12.4 (12.0-15.0) g/dL Hct 40.0 36.0 L (37.0-47.0) % Plt Count 325 295 (150-375) k/mm3 Lymph # (Auto) 1.67 1.56 (0.9-3.2) K/mm3 [place] # (Auto) 1.4 H 1.0 H (0.1-0.6) K/mm3 Eos # (Auto) 0.1 0.0 (0-0.3) K/mm3 Baso # (Auto) 0.1 0.0 (0.0-0.1) K/mm3 Comprehensive Metabolic Panel 11/27/24 11/27/24 11/27/24 Range/Units 12:46 12:46 12:46 Sodium Cancelled 135 L Potassium Cancelled 4.0 Chloride Cancelled Carbon Dioxide BUN Creatinine Glucose Calcium AST ALT Alkaline Phosphatase Total Protein Albumin 11/27/24 11/27/24 11/27/24 Range/Units 12:46 12:46 12:46 Sodium Potassium Chloride 98 Carbon Dioxide Cancelled 31 H BUN Cancelled 16 Creatinine Cancelled Glucose Calcium AST ALT Alkaline Phosphatase Total Protein Albumin 11/27/24 11/27/24 11/27/24 Range/Units 12:46 12:46 12:46 Sodium Potassium Chloride Carbon Dioxide BUN Creatinine 1.14 H Glucose Cancelled 122 H Calcium Cancelled 9.4 AST Cancelled ALT Alkaline Phosphatase Total Protein Albumin 11/27/24 11/27/24 11/27/24 Range/Units 12:46 12:46 12:46 Sodium Potassium Chloride Carbon Dioxide BUN Creatinine Glucose Calcium AST 87 H ALT Cancelled 36 H Alkaline Phosphatase Cancelled 71 Total Protein Cancelled Albumin 11/27/24 11/27/24 11/28/24 Range/Units 12:46 12:46 04:03 Sodium 136 L Potassium 2.9 L Chloride 98 Carbon Dioxide 32 H BUN 21 H Creatinine 1.61 H Glucose 127 H Calcium 9.5 AST 96 H ALT 34 Alkaline Phosphatase 84 Total Protein 6.9 6.5 Albumin Cancelled 3.9 3.7 Intake and Output 11/27/24 11/28/24 11/28/24 23:59 07:59 15:59 Intake Total 80 455.0 307.3 Balance 80 455.0 307.3 Intake: IV 80 105.0 67.3 dilTIAZem 100 MG/100 ML 100 mg 30 105.0 67.3 In 100 ml @ 15 MG/HR 15 mls/hr IV CONT .[id number] SADIE Rx#: [id number] cefTRIAXone 1 gm In Sodium 50 Chloride 0.9% IV 50 ml @ 100 mls/hr IVPB ONCE STA Rx#: [id number] Oral 350 240 Other: # Unmeasured Voids 1 Patient Weight 11/28/24 23:59 Weight 154.5 kg
[2024-11-28] MEDS: METOPROLOL TARTRATE 25 MG TABLET PO ×2 (11:10→20:35)
[2024-11-28] MEDS: PERFLUTREN LIPID MICROSPHERES 1.5 ML VIAL DILUTED TO 10 ML TOTAL VOLUME IV PUSH (12:21)
--- NOTE | 2024-11-28 12:21 | IVDEFINITY ---
Prior to administration of IV Definity the patient was educated on the risks and benefits of the imaging enhancing agent including potential adverse side effects. The patient verbalized understanding. Allergies were verified. No exclusion criteria were identified and at least one of the following inclusion criteria were met: 1) physician request, 2) patient technically difficult to image (per the [place] [employer] guidelines of two or more segments not discernable within the apical view), or 3) questionable left ventricular function. ?
[2024-11-28] MEDS: cefTRIAXone 1 GM in SODIUM CHLORIDE 0.9% IV 50 ML 100 ML IVPB (15:25)
--- NOTE | 2024-11-28 16:20 | P.PNIM_ITS ---
Progress Note: A&P Assessment and Plan (1) Atrial flutter with rapid ventricular response: Code(s): I48.92 - Unspecified atrial flutter Status: Acute Assessment and Plan: Initial EKG showed atrial flutter/tachycardia with RVR, rate 159. Repeat post metoprolol showed better defined atrial flutter/tachycardia with RVR, rate 117. No previous history of dysrhythmia Initially given metoprolol 5 mg IV then started on a diltiazem gtt TSH 0.294, T4 1.59, T3 0.76. Cardiology consulted CHADSVas: 3 Echo showing EF 65-70%, mild increased LV wall thickness, normal LV septal wall and grade II diastolic dysfunction. No valvular disease. She converted to sinus rhythm. Diltiazem stopped and metoprolol started. Eliquis started per Cardiology. (2) Hip injury: Qualifiers: Encounter type: initial encounter Laterality: right Qualified Code(s): S79.911A - Unspecified injury of right hip, initial encounter Code(s): S79.919A - Unspecified injury of unspecified hip, initial encounter Status: Acute Assessment and Plan: Patient with right hip pain after she fell out of bed. Head CT showing no fracture or acute intracranial process but a small old lacunar infarct at the left internal capsule and mild scattered white matter hypoattenuation consistent with chronic small vessel ischemic disease. Also noted is a 1.4 cm calcified meningioma overlying the right occipital lobe. Hip/pelvic XR showing possible right transcervical femoral neck fracture CT of the pelvis showing no evidence of acute pelvic or hip fracture Analgesics prn. UA as mentioned below (3) Acute UTI: Code(s): N39.0 - Urinary tract infection, site not specified Status: Acute Assessment and Plan: UA is consistent with UTI except for moderate squamous cells. No UCx collected. No previous micro available for review Rocephin started. BCx pending. Follow up on BCx results. (4) Hypertension: Qualifiers: Hypertension type: primary hypertension Qualified Code(s): I10 - Essential (primary) hypertension Code(s): I10 - Essential (primary) hypertension Status: Chronic Assessment and Plan: Patient's blood pressure was reviewed on 11/28 Blood pressure remains well controlled. Will continue to monitor (5) JOSE JUAN (acute kidney injury): Code(s): N17.9 - Acute kidney failure, unspecified Status: Acute Assessment and Plan: No baseline renal function, Cr 1.14 on admission but up to 1.61 now. On meloxicam, tramadol and losartan. Not on diuretics. Probably more likely related to AFib/RVR. Monitor renal function, UOP and electrolytes (6) Hypokalemia: Code(s): E87.6 - Hypokalemia Status: Acute Assessment and Plan: Potassium dropped to 2.9 today. Not on diuretics. Potassium replaced. Mag also given. Follow and replace as needed. Plan DVT Prophylaxis: Eliquis Code Status: Full code Subjective Date/time seen: 11/28/24 16:20 Interval history: 64yo female with HLD and HTN who presents here with a ground level fall and found to have AFlutter. No problems overnight. No CP or SOB. Minimal hip pain now. No hx of AFib/flu tter. No complaints of palpitations. She converted to sinus rhythm this morning. Exam Narrative: AF 97.7 137/79 83 18 95% ra Gen - NARD Chest - CTA bilaterally, nml RR CV - RRR S1/S2 Abd - Soft, obese, NT Ext - No pedal edema Psych - Nml mood and affect Skin - Warm and dry Objective Data Vital Signs Vital Signs: Vital Signs - 24 hr 11/27/24 16:37 11/27/24 17:10 11/27/24 17:15 Temperature Pulse Rate 101 H 122 H 130 H Respiratory Rate 15 19 24 H Blood Pressure Pulse Oximetry 94 95 95 Oxygen Delivery Oxygen Flow Rate 11/27/24 18:23 11/27/24 19:07 11/27/24 20:00 Temperature 98.1 F Pulse Rate 775 H 130 H 123 H Respiratory Rate 20 18 Blood Pressure 108/53 L 134/117 H Pulse Oximetry 95 95 Oxygen Delivery Oxygen Flow Rate 11/27/24 20:00 11/27/24 21:00 11/27/24 21:02 Temperature 97.6 F Pulse Rate 90 104 H Respiratory Rate 18 Blood Pressure 134/50 L 134/50 L Pulse Oximetry 95 95 Oxygen Delivery Nasal Cannula Oxygen Flow Rate 3 11/27/24 22:00 11/27/24 23:00 11/27/24 23:00 Temperature Pulse Rate 90 94 94 Respiratory Rate Blood Pressure 104/55 L 104/55 L Pulse Oximetry Oxygen Delivery Oxygen Flow Rate 11/27/24 23:58 11/28/24 00:00 11/28/24 00:00 Temperature 97.7 F Pulse Rate 81 82 Respiratory Rate 18 Blood Pressure 130/65 Pulse Oximetry 95 95 Oxygen Delivery Nasal Cannula Oxygen Flow Rate 3 11/28/24 00:00 11/28/24 02:00 11/28/24 02:00 Temperature Pulse Rate 82 98 93 Respiratory Rate Blood Pressure 130/65 124/78 Pulse Oximetry 96 Oxygen Delivery Oxygen Flow Rate 11/28/24 02:00 11/28/24 03:34 11/28/24 03:34 Temperature Pulse Rate 93 85 85 Respiratory Rate Blood Pressure 124/78 121/52 L 121/52 L Pulse Oximetry Oxygen Delivery Oxygen Flow Rate 11/28/24 03:41 11/28/24 03:46 11/28/24 04:00 Temperature 97.7 F Pulse Rate 103 H 103 H Respiratory Rate 18 Blood Pressure 110/63 110/63 Pulse Oximetry 96 98 Oxygen Delivery Nasal Cannula Oxygen Flow Rate 2 11/28/24 04:00 11/28/24 05:56 11/28/24 06:00 Temperature Pulse Rate 99 88 82 Respiratory Rate Blood Pressure 119/65 Pulse Oximetry Oxygen Delivery Oxygen Flow Rate 11/28/24 06:00 11/28/24 07:45 11/28/24 07:47 Temperature 97.5 F L Pulse Rate 82 84 84 Respiratory Rate 16 Blood Pressure 119/65 108/73 Pulse Oximetry 98 Oxygen Delivery Oxygen Flow Rate 11/28/24 08:00 11/28/24 08:00 11/28/24 08:00 Temperature Pulse Rate 80 80 Respiratory Rate Blood Pressure Pulse Oximetry 97 Oxygen Delivery Nasal Cannula Oxygen Flow Rate 2 11/28/24 09:50 11/28/24 10:00 11/28/24 10:00 Temperature Pulse Rate 84 95 92 Respiratory Rate Blood Pressure Pulse Oximetry Oxygen Delivery Oxygen Flow Rate 11/28/24 10:39 11/28/24 10:39 11/28/24 10:45 Temperature Pulse Rate 98 98 Respiratory Rate Blood Pressure 126/57 L Pulse Oximetry Oxygen Delivery Oxygen Flow Rate 11/28/24 11:10 11/28/24 11:41 11/28/24 12:00 Temperature 97.9 F Pulse Rate 92 96 Respiratory Rate 16 Blood Pressure 120/67 Pulse Oximetry 92 98 Oxygen Delivery Room Air Oxygen Flow Rate 11/28/24 12:00 11/28/24 14:00 Temperature 97.7 F Pulse Rate 100 83 Respiratory Rate 18 Blood Pressure 137/79 Pulse Oximetry 95 Oxygen Delivery Oxygen Flow Rate Intake/Output Intake/Output: Intake & Output 11/25/24 11/26/24 11/27/24 11/28/24 23:59 23:59 23:59 23:59 Intake Total 1085.3 1552.3 Output Total 100 Balance 1085.3 1452.3 Meds/Results Medications: Active Medications Generic Name Dose Route Start Last Admin Trade Name Freq PRN Reason Stop Dose Admin Atorvastatin Calcium 20 mg 11/27/24 20:25 11/27/24 20:56 Atorvastatin 20 Mg Tablet PO 20 mg QPM SADIE Administration Baclofen 10 mg 11/28/24 09:00 11/28/24 08:46 Baclofen 10 Mg Tablet PO 10 mg QAM SADIE Administration Ezetimibe 10 mg 11/28/24 09:00 11/28/24 08:47 Ezetimibe 10 Mg Tablet PO 10 mg DAILY SADIE Administration Enoxaparin Sodium 40 mg 11/27/24 16:00 11/28/24 08:46 Enoxaparin 40 Mg/0.4 Ml Syringe SUB-Q 40 mg DAILY SADIE Administration Folic Acid 1 mg 11/28/24 09:00 11/28/24 08:47 Folic Acid 1 Mg Tablet PO 1 mg DAILY SADIE Administration Gabapentin 300 mg 11/28/24 09:00 11/28/24 15:25 Gabapentin 300 Mg Capsule PO 300 mg 0900,1500 SADIE Administration Gabapentin 600 mg 11/27/24 21:00 11/27/24 20:57 Gabapentin 300 Mg Capsule PO 600 mg HS SADIE Administration Ceftriaxone Sodium 1 gm/ 50 mls @ 100 mls/hr 11/28/24 16:00 11/28/24 15:25 Sodium Chloride IVPB 100 mls/hr Q24H SADIE Administration Losartan Potassium 25 mg 11/27/24 21:00 11/27/24 20:56 Losartan Potassium 25 Mg Tablet PO 25 mg HS SADIE Administration Meloxicam 7.5 mg 11/28/24 09:00 11/28/24 08:47 Meloxicam 7.5 Mg Tablet PO 7.5 mg DAILY SADIE Administration Methotrexate 5 mg 12/04/24 09:00 Methotrexate 2.5 Mg Tab (*Chemo) PO WEEKLY [facility] Metoprolol Tartrate 25 mg 11/28/24 11:00 11/28/24 11:10 Metoprolol Tartrate 25 Mg Tablet PO 25 mg Q12HR SADIE Administration Miscellaneous Information 1 each 11/28/24 00:01 Hold Home Verapamil While On Iv Cardizem? XX 12/28/24 00:00 CLARIFY [facility] Miscellaneous Information 1 each 11/28/24 00:01 Clarify Methotrexate--Ok To Give 5 Mg On Thursday Morning As Ordered Or Split Dose As Med Re XX 12/28/24 00:00 CLARIFY [facility] Morphine Sulfate 15 mg 11/28/24 04:00 11/28/24 03:34 Morphine Sulfate (*Crx) 15 Mg Tabcr PO 15 mg 0400,1800 [facility] Administration Pantoprazole Sodium 40 mg 11/28/24 09:00 11/28/24 08:47 Pantoprazole 40 Mg Tablet PO 40 mg QAM SADIE Administration Sulfasalazine 500 mg 11/28/24 09:00 11/28/24 08:46 Sulfasalazine 500 Mg Tablet PO 500 mg BID SADIE Administration Tramadol HCl 100 mg 11/27/24 20:25 11/28/24 15:25 Tramadol Hcl (*Crx) 50 Mg Tablet PO 100 mg TID SADIE Administration Verapamil HCl 40 mg 11/28/24 09:00 Verapamil Hcl 40 Mg Tablet PO TID [facility] Vitamin D 50 mcg 11/28/24 09:00 11/28/24 08:46 Cholecalciferol (Vitamin D3) 25 Mcg (1,000 Units) Tablet PO 50 mcg DAILY SADIE Administration Radiology Results: ITS Impressions Head CT 11/27/24 14:07 IMPRESSION: 1. No fracture or acute intracranial process. 2. Small old lacunar infarct at the left internal capsule and mild scattered white matter hypoattenuation consistent with chronic small vessel ischemic disease. 3. 1.4 cm calcified meningioma overlying the right occipital lobe. Hip/Pelvis X-Ray 11/27/24 15:09 IMPRESSION: Possible right transcervical femoral neck fracture, recommend CT of the pelvis for confirmation. Pelvis CT 11/27/24 16:16 IMPRESSION: No CT evidence of acute pelvic or hip fracture. Labs Labs: Laboratory Results - last 24 hr 11/28/24 04:03 WBC 8.0 RBC 3.30 L Hgb 12.4 Hct 36.0 L MCV 109.1 H MCH 37.6 H MCHC 34.4 RDW 13.2 Plt Count 295 MPV 10.5 H Immature Gran % (Auto) 0.3 Neut % (Auto) 67.2 Lymph % (Auto) 19.5 [place] % (Auto) 12.1 H Eos % (Auto) 0.5 Baso % (Auto) 0.4 Lymph # (Auto) 1.56 [place] # (Auto) 1.0 H Eos # (Auto) 0.0 Baso # (Auto) 0.0 Abs Immat Gran (auto) 0.02 Absolute Neuts (auto) 5.4 Absolute Nucleated RBC 0.030 H Nucleated RBC % 0.4 H Sodium 136 L Potassium 2.9 L Chloride 98 Carbon Dioxide 32 H Anion Gap 6 BUN 21 H Creatinine 1.61 H Estim Creat Clear Calc 46 Estimated GFR 32 L Glucose 127 H Calcium 9.5 Magnesium 1.8 Total Bilirubin 0.6 AST 96 H ALT 34 Alkaline Phosphatase 84 Total Protein 6.5 Albumin 3.7
[2024-11-28] MEDS: ATORVASTATIN 20 MG TABLET PO (17:14)
[2024-11-28] MEDS: APIXABAN 5 MG TABLET PO (20:34)
[2024-11-28] MEDS: GABAPENTIN 300 MG CAPSULE 600 MG PO (20:34)
[2024-11-28] MEDS: LOSARTAN POTASSIUM 25 MG TABLET PO (20:35)
[2024-11-29] VITALS (22 sets, daily range): BP systolic 121–152; BP diastolic 65–85; PULSE 55–114; RESP 16–20; TEMP 36.3–36.7; O2SAT 93–98
[2024-11-29] MEDS: MORPHINE SULFATE (*CRX) 15 MG TABCR PO ×2 (04:54→18:32)
[2024-11-29] MEDS: traMADol HCL (*CRX) 50 MG TABLET 100 MG PO (04:54)
[2024-11-29 06:07] LABS: Anion Gap 7 mmol/L (4-12); Blood Urea Nitrogen 28 mg/dL (7-17); Calcium 9.6 mg/dL (8.4-10.2); Carbon Dioxide 31 mmol/L (22-30); Chloride 95 mmol/L (98-107); Estimated CRCL calculation 36 ml/min; Estimated Glomerular Filt Rate 24; Glucose 118 mg/dL (65-110); Magnesium 2.2 mg/dL (1.6-2.3); Potassium 3.7 mmol/L (3.4-5.0); Sodium 133 mmol/L (137-145)
[2024-11-29 08:07] LABS: Creatine Kinase 802 U/L (30-135)
--- NOTE | 2024-11-29 09:08 | P.PNCA_ITS ---
Progress Note: A&P Assessment and Plan (1) Atrial flutter with rapid ventricular response: Code(s): I48.92 - Unspecified atrial flutter Status: Acute Assessment and Plan: This is a new diagnosis. Spontaneously converted to sinus rhythm and remains in sinus rhythm now. * Continue metoprolol - can shift to metoprolol succinate at discharge for dosing convenience * She has a CHADs2 Vasc score of 3 (age, gender, HTN). Anticoagulation is indicated. Continue Eliquis 5mg p.o. b.i.d. * Echo showed normal LV systolic function with grade II diastolic dysfunction. * Check and replace electrolytes to maintain K+ 4.0, Mag 2. Cardiology will sign off. Please call with questions. Will arrange for close outpatient follow up in our office. (2) Hypertension: Qualifiers: Hypertension type: primary hypertension Qualified Code(s): I10 - Essential (primary) hypertension Code(s): I10 - Essential (primary) hypertension Status: Chronic Assessment and Plan: At goal (3) Hypokalemia: Code(s): E87.6 - Hypokalemia Status: Acute Assessment and Plan: Corrected Subjective Date/time seen: 11/29/24 09:08 Interval history: Cardiology follow up visit Feels well this morning, no complaints. Remains in sinus rhythm. Review of Systems Review of Systems: All systems reviewed & are unremarkable except as noted in HPI and below Exam Const: General: comfortable, no acute distress, alert and awake Orientation/consciousness: patient oriented x3 Other: morbidly obese HENMT: Head: normal to inspection Eyes: General: appearance normal, both eyes and all related structures Pupils: Equal, round and reactive pupils present Neck: Neck: normal visual inspection, supple and no JVD Carotids: normal carotid upstroke Resp: Effort & Inspection: normal respiratory effort Auscultation: clear to auscultation bilaterally Cardio: Rate: regular rate Rhythm: regular rhythm Heart sounds: S1 normal heart sound present, S2 normal heart sound present and no murmurs GI: Auscultation: normal bowel sounds Skin: General skin exam: normal color Neuro: General: patient oriented x3 Cranial nerves: Yes Equal, round and reactive pupils present Extrem: General: normal to inspection Psych: Appearance: grossly normal Mental Status: mental status grossly normal Objective Data Vital Signs Vital Signs: Vital Signs - 24 hr 11/28/24 09:50 11/28/24 10:00 11/28/24 10:00 Temperature Pulse Rate 84 95 92 Respiratory Rate Blood Pressure Pulse Oximetry Oxygen Delivery 11/28/24 10:39 11/28/24 10:39 11/28/24 10:45 Temperature Pulse Rate 98 98 Respiratory Rate Blood Pressure 126/57 L Pulse Oximetry Oxygen Delivery 11/28/24 11:10 11/28/24 11:41 11/28/24 12:00 Temperature 36.6 C Pulse Rate 92 96 Respiratory Rate 16 Blood Pressure 120/67 Pulse Oximetry 92 98 Oxygen Delivery Room Air 11/28/24 12:00 11/28/24 14:00 11/28/24 14:00 Temperature 36.5 C Pulse Rate 100 83 90 Respiratory Rate 18 Blood Pressure 137/79 Pulse Oximetry 95 Oxygen Delivery 11/28/24 16:00 11/28/24 16:00 11/28/24 18:00 Temperature Pulse Rate 84 68 Respiratory Rate Blood Pressure Pulse Oximetry Oxygen Delivery Room Air 11/28/24 19:50 11/28/24 19:55 11/28/24 20:00 Temperature 36.7 C Pulse Rate 94 91 91 Respiratory Rate 18 15 Blood Pressure 117/63 Pulse Oximetry 95 94 Oxygen Delivery Room Air 11/28/24 20:35 11/28/24 22:00 11/28/24 22:52 Temperature Pulse Rate 84 82 Respiratory Rate Blood Pressure Pulse Oximetry 93 Oxygen Delivery Room Air 11/28/24 23:39 11/29/24 00:00 11/29/24 02:00 Temperature 37.1 C Pulse Rate 87 82 84 Respiratory Rate 16 Blood Pressure 146/87 H Pulse Oximetry 93 Oxygen Delivery 11/29/24 03:55 11/29/24 04:00 11/29/24 04:00 Temperature 36.6 C Pulse Rate 98 98 77 Respiratory Rate 16 16 Blood Pressure 121/71 Pulse Oximetry 98 98 Oxygen Delivery Room Air 11/29/24 06:00 11/29/24 07:43 Temperature 36.7 C Pulse Rate 74 55 L Respiratory Rate 18 Blood Pressure 131/67 Pulse Oximetry 94 Oxygen Delivery Intake/Output Intake/Output: Intake & Output 11/26/24 11/27/24 11/28/24 11/29/24 23:59 23:59 23:59 23:59 Intake Total 1085.3 1792.3 0 Output Total 200 300 Balance 1085.3 1592.3 -300 Meds/Results Medications: Active Medications Generic Name Dose Route Start Last Admin Trade Name Shital PRN Reason Stop Dose Admin Apixaban 5 mg 11/28/24 21:00 11/28/24 20:34 Apixaban 5 Mg Tablet PO 5 mg Q12HR SADIE Administration Atorvastatin Calcium 20 mg 11/27/24 20:25 11/28/24 17:14 Atorvastatin 20 Mg Tablet PO 20 mg QPM SADIE Administration Baclofen 10 mg 11/28/24 09:00 11/28/24 08:46 Baclofen 10 Mg Tablet PO 10 mg QAM SADIE Administration Ezetimibe 10 mg 11/28/24 09:00 11/28/24 08:47 Ezetimibe 10 Mg Tablet PO 10 mg DAILY SADIE Administration Folic Acid 1 mg 11/28/24 09:00 11/28/24 08:47 Folic Acid 1 Mg Tablet PO 1 mg DAILY SADIE Administration Gabapentin 300 mg 11/28/24 09:00 11/28/24 15:25 Gabapentin 300 Mg Capsule PO 300 mg 0900,1500 SADIE Administration Gabapentin 600 mg 11/27/24 21:00 11/28/24 20:34 Gabapentin 300 Mg Capsule PO 600 mg HS SADIE Administration Ceftriaxone Sodium 1 gm/ 50 mls @ 100 mls/hr 11/28/24 16:00 11/28/24 15:25 Sodium Chloride IVPB 100 mls/hr Q24H SADIE Administration Losartan Potassium 25 mg 11/27/24 21:00 11/28/24 20:35 Losartan Potassium 25 Mg Tablet PO 25 mg HS SADIE Administration Metoprolol Tartrate 25 mg 11/28/24 11:00 11/28/24 20:35 Metoprolol Tartrate 25 Mg Tablet PO 25 mg Q12HR SADIE Administration Morphine Sulfate 15 mg 11/28/24 04:00 11/29/24 04:54 Morphine Sulfate (*Crx) 15 Mg Tabcr PO 15 mg 0400,1800 SADIE Administration Pantoprazole Sodium 40 mg 11/28/24 09:00 11/28/24 08:47 Pantoprazole 40 Mg Tablet PO 40 mg QAM SADIE Administration Sulfasalazine 500 mg 11/28/24 09:00 11/28/24 17:14 Sulfasalazine 500 Mg Tablet PO 500 mg BID SADIE Administration Tramadol HCl 100 mg 11/28/24 22:00 11/29/24 04:54 Tramadol Hcl (*Crx) 50 Mg Tablet PO 100 mg Q8HR SADIE Administration Verapamil HCl 40 mg 11/28/24 09:00 Verapamil Hcl 40 Mg Tablet PO TID SADIE Vitamin D 50 mcg 11/28/24 09:00 11/28/24 08:46 Cholecalciferol (Vitamin D3) 25 Mcg (1,000 Units) Tablet PO 50 mcg DAILY SADIE Administration Radiology Results: ITS Impressions Head CT 11/27/24 14:07 IMPRESSION: 1. No fracture or acute intracranial process. 2. Small old lacunar infarct at the left internal capsule and mild scattered white matter hypoattenuation consistent with chronic small vessel ischemic dis ease. 3. 1.4 cm calcified meningioma overlying the right occipital lobe. Hip/Pelvis X-Ray 11/27/24 15:09 IMPRESSION: Possible right transcervical femoral neck fracture, recommend CT of the pelvis for confirmation. Pelvis CT 11/27/24 16:16 IMPRESSION: No CT evidence of acute pelvic or hip fracture. Labs Labs: Laboratory Results - last 24 hr 11/29/24 05:23 Sodium 133 L Potassium 3.7 Chloride 95 L Carbon Dioxide 31 H Anion Gap 7 BUN 28 H Creatinine 2.08 H Estim Creat Clear Calc 36 Estimated GFR 24 L Glucose 118 H Calcium 9.6 Magnesium 2.2 Total Creatine Kinase 802 H Complement C3 165 Complement C4 44.7 H Quality VTE Prophylaxis VTE prophylaxis: pharmacologic ordered
[2024-11-29] MEDS: CHOLECALCIFEROL (VITAMIN D3) 25 MCG (1,000 UNITS) TABLET 50 MCG PO (09:24)
[2024-11-29] MEDS: VERAPAMIL HCL 40 MG TABLET PO ×3 (09:24→16:23)
[2024-11-29] MEDS: BACLOFEN 10 MG TABLET PO (09:24)
[2024-11-29] MEDS: METOPROLOL TARTRATE 25 MG TABLET PO ×2 (09:25→20:36)
[2024-11-29] MEDS: APIXABAN 5 MG TABLET PO ×2 (09:25→20:36)
[2024-11-29] MEDS: PANTOPRAZOLE 40 MG TABLET PO (09:25)
[2024-11-29] MEDS: EZETIMIBE 10 MG TABLET PO (09:25)
[2024-11-29] MEDS: FOLIC ACID 1 MG TABLET PO (09:25)
[2024-11-29] MEDS: GABAPENTIN 300 MG CAPSULE PO ×2 (09:26→16:23)
[2024-11-29 10:09] LABS: Total Protein Urine Random 12 mg/dL
[2024-11-29 10:10] LABS: Urea Random Urine 323 MG/DL
[2024-11-29 10:23] LABS: Ur Ttl Prot Creatinine Ratio 0.02 mg/mg (0-0.20)
--- NOTE | 2024-11-29 11:01 | P.CONNP_ITS ---
Assessment and Plan Assessment and plan (1) Acute kidney injury: Code(s): N17.9 - Acute kidney failure, unspecified Status: Acute Assessment and Plan: * as noted by trend of labs since admission * no previous baseline labs for comparision * admission creatinine 1.14mg/dl * etiology not clear... * no significant hypotension noted * no contrast exposure * no nephrotoxic medications (although was on ARB and NSAIDs) * eating and drinking okay * related to Afib with RVR? * evaluation to date noted: * urine electrolytes prerenal * urine eosinophils pending * no significant proteinuria * CPK mildly elevated - not enough to affect kidney function * renal ultrasound pending * UA suggestive of infection * bladder scan x 1 and PRN * agree with holding NSAIDs and ARB * trial of IVFs * repeat labs and follow UOP (2) Atrial flutter with rapid ventricular response: Code(s): I48.92 - Unspecified atrial flutter Status: Acute Assessment and Plan: * initial EKG with atrial flutter/tachycardiac with heart rate of 159 * s/p IV metoprolol * initiated on diltiazem gtt * subsequently converted to NSR * transitioned from diltiazem gtt to oral metoprolol * on anticoagulation * Cardiology recommendations noted (3) Hypokalemia: Code(s): E87.6 - Hypokalemia Status: Acute Assessment and Plan: * noted yesterday * replace/replete as needed * follow trend of K+ (4) Hip injury: Qualifiers: Encounter type: initial encounter Laterality: right Qualified Code(s): S79.911A - Unspecified injury of right hip, initial encounter Code(s): S79.919A - Unspecified injury of unspecified hip, initial encounter Status: Acute Assessment and Plan: * noted on right side s/p fall from bed when sleeping * head CT without acute findings * hip/pelvic X-rays with showing possible right transcervical femoral neck fracture * however, pelvic CT showing no evidence of acute pelvic or hip fracture * continue pain medication as needed * PT/OT as tolerated (5) Acute UTI: Code(s): N39.0 - Urinary tract infection, site not specified Status: Acute Assessment and Plan: * admission UA suggestive: * cloudy, 2+ protein, trace ketones, 2+ bilirubin, 1+ leuk esterase, 21-50 RBC, 11-20 WBC, 4+ bacteria with moderate epithelial cells * urine culture note done * follow blood cultures * on antibiotics (6) Hypertension: Qualifiers: Hypertension type: primary hypertension Qualified Code(s): I10 - Essential (primary) hypertension Code(s): I10 - Essential (primary) hypertension Status: Chronic Assessment and Plan: * reasonable control * losartan on hold * follow trend of hemodynamics I will continue to follow the patient with you while he remains hospitalized and make further recommendations as deemed necessary. Thank you for allowing me to participate in the care of this patient. L History of Present Illness Reason for Consult Consult date: 11/29/24 Reason for consult: acute renal failure Chief Complaint Chief complaint: afib/aflutter with rvr History of Present Illness Narrative: The patient is a 64-year-old female with a past medical history as outlined below who presented to [facility] Emergency room status post fall. The patient apparently had a ground level fall on the day of admission with resultant right hip pain. She apparently rolled out of bed while sleeping and landed on her right side. There is no apparent head strike or loss of consciousness after the fall. She reported no chest pain, shortness of breath, dizziness, palpitations, diaphoresis, nausea, vomiting, or any other subjective symptoms prior to or after the fall. She did state that she had what she thought was the stomach flu after eating something that did not agree with her earlier in the week but the symptoms have resolved. However, due to the severity of her right hip pain and her inability to get up, EMS was called and she was subsequently transferred to the emergency room for further assessment. Workup and evaluation emergency room demonstrated the patient be hemodynamically stable and afebrile but she has noted be quite tachycardic with heart rate fluctuating anywhere from 114-163. Subsequent EKG revealed atrial flutter with RVR. Further testing was significant for a white blood cell count 11.0, normal hemoglobin/ hematocrit, normal coagulation studies, sodium 135, creatinine 1.14 with a glucose of 122, lactic acid 1.8 CRP of 2.9 and a TSH of 0.294 with a normal T4 and a mildly reduced T3. X-rays of her right hip/ pelvis showed no acute fracture or dislocation and a head CT showed no acute intracranial process as well. Given her atrial flutter with RVR which apparently was a new finding, she was given IV metoprolol in effort to control her heart rate and initiated on a diltiazem drip for better rate control. She was subsequently admitted to the hospital for further evaluation and therapy. Since her hospitalization, she has been seen in consultation by Cardiology and her heart rate has converted to normal sinus rhythm with conservative therapy. However, as noted by the trend of her labs since admission, her renal function has been deteriorating. Renal consultation was requested due to her acute kidney injury/acute renal failure. I have no previous baseline labs to compare to other than the fact that her creatinine was 1.14 mg/dL on admission arguing that perhaps maybe she has some some mild renal insufficiency at baseline although the paired how long she was in atrial flutter with RVR, her renal function could have fluctuated because of this finding. However, on further questioning, she does not report any history or knowledge of renal insufficiency /chronic kidney disease at baseline. Interestingly, despite her renal insufficiency, she has actually had issues and problems with hypokalemia requiring aggressive replacement. In spite of her renal dysfunction, she otherwise appears to be doing reasonably well. Currently, at the time my evaluation, she does not appear to be in any acute distress. Review of Systems 2 Review of Systems: As per HPI. [facility] Past Medical History Medical History Hypertension Anxiety Rheumatoid arthritis Ankylosing spondylitis Surgical History Surgical History History of hysterectomy History of elbow surgery History of bilateral knee replacement History of bladder surgery Social History Social History Smoking status: Never smoker Alcohol intake: never Substance use: never Lack of Transportation: No Lack of Food: Never True Current Housing: I Have Housing Concerned About Future Housing: No Difficulty Paying Gas/Electric Bills: No Difficulty Paying for Meds: No Currently Unemployed: No Education: Trade/Vocational Certificate Difficulty w/ Childcare or Family Care: No Spiritual care concerns: No Meds Home Medications and Allergies Home Medications ?Medication ?Instructions ?Recorded ?Confirmed ?Type atorvastatin 20 mg tablet 20 mg PO QPM 11/27/24 11/27/24 History baclofen 10 mg tablet 10 mg PO QAM 11/27/24 11/27/24 History cholecalciferol (vitamin D3) 50 50 mcg PO DAILY 11/27/24 11/27/24 History mcg (2,000 unit) capsule (Vitamin D3) ezetimibe 10 mg tablet 10 mg PO DAILY 11/27/24 11/27/24 History folic acid 1 mg tablet 1 mg PO DAILY 11/27/24 11/27/24 History gabapentin 300 mg capsule 300 mg PO Q8H 11/27/24 11/27/24 History losartan 25 mg tablet 25 mg PO HS 11/27/24 11/27/24 History meloxicam 7.5 mg tablet 7.5 mg PO DAILY 11/27/24 11/27/24 History methotrexate sodium 2.5 mg tablet 5 mg PO WEEKLY 11/27/24 11/27/24 History morphine 15 mg tablet,extended 15 mg PO BID 11/27/24 11/27/24 History release omeprazole 20 mg capsule,delayed 20 mg PO DAILY 11/27/24 11/27/24 History release prednisone 5 mg tablet 5 mg PO PRN PRN arthritis 11/27/24 11/27/24 History secukinumab 150 mg/mL subcutaneous 150 mg subcut MONTHLY 11/27/24 11/27/24 History pen injector (Cosentyx Pen 300 mg/2 pens () sulfasalazine 500 mg 0.5 g PO BID 11/27/24 11/27/24 History tablet,delayed release tramadol 50 mg tablet 100 mg PO TID 11/27/24 11/27/24 History verapamil 40 mg tablet 40 mg PO TID 11/27/24 11/27/24 History Allergies Allergy/AdvReac Type Severity Reaction Status Date / Time No Known Allergies Allergy Verified 11/27/24 18:58 Vital Signs Vital Signs Temp Pulse Resp BP Pulse Ox O2 Del Method 11/29/24 11:00 98.1 F 79 20 134/85 96 11/29/24 09:25 114 H 11/29/24 07:43 98.0 F 55 L 18 131/67 94 11/29/24 06:00 74 11/29/24 04:00 77 11/29/24 04:00 98 16 98 Room Air 11/29/24 03:55 97.8 F 98 16 121/71 98 11/29/24 02:00 84 11/29/24 00:00 82 11/28/24 23:39 98.7 F 87 16 146/87 H 93 11/28/24 22:52 93 Room Air 11/28/24 22:00 82 11/28/24 20:35 84 11/28/24 20:00 91 11/28/24 19:55 98.1 F 91 15 117/63 94 11/28/24 19:50 94 18 95 Room Air 11/28/24 18:00 68 11/28/24 16:00 84 11/28/24 16:00 Room Air 11/28/24 14:00 90 11/28/24 14:00 97.7 F 83 18 137/79 95 11/28/24 12:00 100 11/28/24 12:00 98 Room Air Exam 2 Narrative: GENERAL APPEARANCE: elderly but large female in no acute distress HEENT: normocephalic, atraumatic, normal conjunctiva and sclera, nares patient NECK: no lymphadenopathy, thyromegaly, or JVD MOUTH: normal lips, teeth, and gums CARDIOVASCULAR: RRR, normal S1 and S2, no rub detected RESPIRATORY: clear to auscultation bilaterally ABDOMEN: obese but soft, nontender, nondistended, positive bowel sounds present EXTREMITIES: no evidence of cyanosis, clubbing, or edema NEUROLOGICAL: alert and oriented x 3; CN II - XII intact bilaterally; no focal deficits noted Results Lab Results 11/30/24 03:51 11/30/24 03:51 Lab results: Most recent lab results Calcium 9.6 mg/dL (8.4-10.2) 11/29/24 05:23 Magnesium 2.2 mg/dL (1.6-2.3) 11/29/24 05:23 Urine Creatinine 588.0 mg/dL 11/29/24 09:44 Urine Creatinine 600.3 mg/dL 11/29/24 09:44
[2024-11-29] MEDS: SODIUM CHLORIDE 0.9% IV 1,000 ML 75 ML IV CONT (12:45)
[2024-11-29 14:04] LABS: Urine Eos QC 2nd Tech Confirmed
--- NOTE | 2024-11-29 15:48 | PM.IMPN ---
Progress Note: A&P Assessment and Plan (1) Atrial flutter with rapid ventricular response: Code(s): I48.92 - Unspecified atrial flutter Status: Acute Assessment and Plan: Initial EKG showed atrial flutter/tachycardia with RVR, rate 159. Repeat post metoprolol showed better defined atrial flutter/tachycardia with RVR, rate 117. No previous history of dysrhythmia Initially given metoprolol 5 mg IV then started on a diltiazem gtt TSH 0.294, T4 1.59, T3 0.76. Cardiology consulted [facility]: 3 Echo showing EF 65-70%, mild increased LV wall thickness, normal LV septal wall and grade II diastolic dysfunction. No valvular disease. She converted to sinus rhythm. Diltiazem stopped and metoprolol started. Eliquis started per Cardiology. (2) Acute kidney injury: Code(s): N17.9 - Acute kidney failure, unspecified Status: Acute Assessment and Plan: No prior labs to review. Cr was 1.14, BUN 16 and eCrCl 62 on admission. Cr worsened yesterday and now up to 2.08 today. UOP inaccurate. Mobic, Ultram, Cozaar, MTX stopped renal US unremarkable. TCK 800, Ueos negative. Lore <5 with FENa <1% consistent with prerenal azotemia IV fluids started. Follow. Monitor renal function, UOP and electrolytes (3) Hip injury: Qualifiers: Encounter type: initial encounter Laterality: right Qualified Code(s): S79.911A - Unspecified injury of right hip, initial encounter Code(s): S79.919A - Unspecified injury of unspecified hip, initial encounter Status: Acute Assessment and Plan: Patient with right hip pain after she fell out of bed. Head CT showing no fracture or acute intracranial process but a small old lacunar infarct at the left internal capsule and mild scattered white matter hypoattenuation consistent with chronic small vessel ischemic disease. Also noted is a 1.4 cm calcified meningioma overlying the right occipital lobe. Hip/pelvic XR showing possible right transcervical femoral neck fracture but pelvic CT showing no evidence of acute pelvic or hip fracture Analgesics prn. PT/OT (4) Acute UTI: Code(s): N39.0 - Urinary tract infection, site not specified Status: Acute Assessment and Plan: UA is consistent with UTI except for moderate squamous cells. No UCx collected. No previous micro available for review Rocephin started. BCx pending. Follow up on BCx results. (5) Hypertension: Qualifiers: Hypertension type: primary hypertension Qualified Code(s): I10 - Essential (primary) hypertension Code(s): I10 - Essential (primary) hypertension Status: Chronic Assessment and Plan: Patient's blood pressure was reviewed on 11/29 Blood pressure remains well controlled. Will continue to monitor (6) Hypokalemia: Code(s): E87.6 - Hypokalemia Status: Acute Assessment and Plan: Potassium dropped to 2.9. Not on diuretics. Potassium replaced. Mag also given. Follow and replace as needed. Plan DVT Prophylaxis: Eliquis Code Status: Full code Subjective Date/time seen: 11/29/24 15:48 Interval history: 64yo female with HLD and HTN who presents here with a ground level fall and found to have AFlutter. Slept okay. Has noticed darker urine and decreased UOP. No CP or SOB. working with therapy Exam Narrative: AF 97.4 128/68 73 16 98% ra Gen - NARD Chest - CTA bilaterally, nml RR CV - RRR S1/S2. Tele showing no significant dysrhythmias Abd - Soft, obese, NT Ext - No pedal edema Psych - Nml mood and affect Skin - Warm and dry Objective Data Vital Signs Vital Signs: Vital Signs - 24 hr 11/28/24 16:00 11/28/24 16:00 11/28/24 18:00 Temperature Pulse Rate 84 68 Respiratory Rate Blood Pressure Pulse Oximetry Oxygen Delivery Room Air 11/28/24 19:50 11/28/24 19:55 11/28/24 20:00 Temperature 98.1 F Pulse Rate 94 91 91 Respiratory Rate 18 15 Blood Pressure 117/63 Pulse Oximetry 95 94 Oxygen Delivery Room Air 11/28/24 20:35 11/28/24 22:00 11/28/24 22:52 Temperature Pulse Rate 84 82 Respiratory Rate Blood Pressure Pulse Oximetry 93 Oxygen Delivery Room Air 11/28/24 23:39 11/29/24 00:00 11/29/24 02:00 Temperature 98.7 F Pulse Rate 87 82 84 Respiratory Rate 16 Blood Pressure 146/87 H Pulse Oximetry 93 Oxygen Delivery 11/29/24 03:55 11/29/24 04:00 11/29/24 04:00 Temperature 97.8 F Pulse Rate 98 98 77 Respiratory Rate 16 16 Blood Pressure 121/71 Pulse Oximetry 98 98 Oxygen Delivery Room Air 11/29/24 06:00 11/29/24 07:43 11/29/24 08:00 Temperature 98.0 F Pulse Rate 74 55 L Respiratory Rate 18 Blood Pressure 131/67 Pulse Oximetry 94 96 Oxygen Delivery Room Air 11/29/24 09:25 11/29/24 11:30 11/29/24 11:31 Temperature 98.1 F Pulse Rate 114 H 79 Respiratory Rate 20 Blood Pressure 134/85 Pulse Oximetry 96 Oxygen Delivery Room Air 11/29/24 14:26 Temperature Pulse Rate Respiratory Rate Blood Pressure Pulse Oximetry Oxygen Delivery Room Air Intake/Output Intake/Output: Intake & Output 11/26/24 11/27/24 11/28/24 11/29/24 23:59 23:59 23:59 23:59 Intake Total 1085.3 1792.3 0 Output Total 200 350 Balance 1085.3 1592.3 -350 Meds/Results Medications: Active Medications Generic Name Dose Route Start Last Admin Trade Name Freq PRN Reason Stop Dose Admin Apixaban 5 mg 11/28/24 21:00 11/29/24 09:25 Apixaban 5 Mg Tablet PO 5 mg Q12HR SADIE Administration Atorvastatin Calcium 20 mg 11/27/24 20:25 11/28/24 17:14 Atorvastatin 20 Mg Tablet PO 20 mg QPM SADIE Administration Baclofen 10 mg 11/28/24 09:00 11/29/24 09:24 Baclofen 10 Mg Tablet PO 10 mg QAM SADIE Administration Ezetimibe 10 mg 11/28/24 09:00 11/29/24 09:25 Ezetimibe 10 Mg Tablet PO 10 mg DAILY SADIE Administration Folic Acid 1 mg 11/28/24 09:00 11/29/24 09:25 Folic Acid 1 Mg Tablet PO 1 mg DAILY SADIE Administration Gabapentin 300 mg 11/28/24 09:00 11/29/24 09:26 Gabapentin 300 Mg Capsule PO 300 mg 0900,1500 SADIE Administration Gabapentin 600 mg 11/27/24 21:00 11/28/24 20:34 Gabapentin 300 Mg Capsule PO 600 mg HS SADIE Administration Ceftriaxone Sodium 1 gm/ 50 mls @ 100 mls/hr 11/28/24 16:00 11/28/24 15:25 Sodium Chloride IVPB 100 mls/hr Q24H SADIE Administration Sodium Chloride 1,000 mls @ 75 mls/hr 11/29/24 12:05 11/29/24 12:45 Normal Saline Iv IV CONT 11/30/24 01:24 75 mls/hr .[id number] SADIE Administration Losartan Potassium 25 mg 11/27/24 21:00 11/28/24 20:35 Losartan Potassium 25 Mg Tablet PO 25 mg HS SADIE Administration Metoprolol Tartrate 25 mg 11/28/24 11:00 11/29/24 09:25 Metoprolol Tartrate 25 Mg Tablet PO 25 mg Q12HR SADIE Administration Morphine Sulfate 15 mg 11/28/24 04:00 11/29/24 04:54 Morphine Sulfate (*Crx) 15 Mg Tabcr PO 15 mg 0400,1800 SADIE Administration Pantoprazole Sodium 40 mg 11/28/24 09:00 11/29/24 09:25 Pantoprazole 40 Mg Tablet PO 40 mg QAM SADIE Administration Sulfasalazine 500 mg 11/28/24 09:00 11/29/24 09:25 Sulfasalazine 500 Mg Tablet PO 500 mg BID SADIE Administration Tramadol HCl 100 mg 11/28/24 22:00 11/29/24 04:54 Tramadol Hcl (*Crx) 50 Mg Tablet PO 100 mg Q8HR SADIE Administration Verapamil HCl 40 mg 11/28/24 09:00 11/29/24 12:46 Verapamil Hcl 40 Mg Tablet PO 40 mg TID SADIE Administration Vitamin D 50 mcg 11/28/24 09:00 11/29/24 09:24 Cholecalciferol (Vitamin D3) 25 Mcg (1,000 Units) Tablet PO 50 mcg DAILY SADIE Administration Radiology Results: ITS Impressions Head CT 11/27/24 14:07 IMPRESSION: 1. No fracture or acute intracranial process. 2. Small old lacunar infarct at the left internal capsule and mild scattered white matter hypoattenuation consistent with chronic small vessel ischemic disease. 3. 1.4 cm calcified meningioma overlying the right occipital lobe. Hip/Pelvis X-Ray 11/27/24 15:09 IMPRESSION: Possible right transcervical femoral neck fracture, recommend CT of the pelvis for confirmation. Pelvis CT 11/27/24 16:16 IMPRESSION: No CT evidence of acute pelvic or hip fracture. Renal Ultrasound 11/29/24 12:15 Impression: 1: Unremarkable renal ultrasound. No stones, masses or hydronephrosis. Labs Labs: Laboratory Results - last 24 hr 11/29/24 11/29/24 11/29/24 05:23 09:44 09:44 Sodium 133 L Potassium 3.7 Chloride 95 L Carbon Dioxide 31 H Anion Gap 7 BUN 28 H Creatinine 2.08 H Estim Creat Clear Calc 36 Estimated GFR 24 L Glucose 118 H Calcium 9.6 Magnesium 2.2 Total Creatine Kinase 802 H Urine Eosinophils None seen U Random Total Protein 12 Ur Random Sodium < 5 Ur Random Urea 323 Urine Creatinine 600.3 588.0 Protein/Creat Ratio 2 0.02 Complement C3 165 Complement C4 44.7 H
[2024-11-29] MEDS: cefTRIAXone 1 GM in SODIUM CHLORIDE 0.9% IV 50 ML 100 ML IVPB (16:23)
[2024-11-29] MEDS: ATORVASTATIN 20 MG TABLET PO (18:32)
[2024-11-29] MEDS: GABAPENTIN 300 MG CAPSULE 600 MG PO (20:36)
[2024-11-30] VITALS (21 sets, daily range): BP systolic 111–151; BP diastolic 49–71; PULSE 70–98; RESP 18–22; TEMP 36.3–37.2; O2SAT 94–100
[2024-11-30 04:10] LABS: Hematocrit 33.3 % (37.0-47.0); Hemoglobin 11.3 g/dL (12.0-15.0); Mean Corpuscular HGB Conc 33.9 g/dl (32-36); Mean Corpuscular Hemoglobin 37.0 pg (26-34); Mean Corpuscular Volume 109.2 fl (80-100); Platelet Count Result 303 k/mm3 (150-375); Red Blood Count 3.05 M/mm3 (4.2-5.4); White Blood Count 6.3 K/mm3 (4.5-10.0)
[2024-11-30] MEDS: MORPHINE SULFATE (*CRX) 15 MG TABCR PO ×2 (04:28→17:45)
[2024-11-30 04:38] LABS: Albumin Level 3.6 g/dL (3.5-5.1); Anion Gap 5 mmol/L (4-12); Blood Urea Nitrogen 34 mg/dL (7-17); Calcium 9.0 mg/dL (8.4-10.2); Carbon Dioxide 29 mmol/L (22-30); Chloride 93 mmol/L (98-107); Estimated CRCL calculation 42 ml/min; Estimated Glomerular Filt Rate 29; Glucose 108 mg/dL (65-110); Magnesium 2.2 mg/dL (1.6-2.3); Potassium 3.4 mmol/L (3.4-5.0); Sodium 127 mmol/L (137-145)
[2024-11-30] MEDS: SODIUM CHLORIDE 0.9% IV 1,000 ML 75 ML IV CONT ×2 (09:23→21:05)
--- NOTE | 2024-11-30 09:24 | P.CDI_ITS ---
<Statement entered by Arabella Rodriguez MD - 12/01/24 15:29> This documentation has been reviewed and approved. Morbid obesity. CDI Query Clarification Request Patient with a BMI of 64.4 please provide a diagnosis to accompany this finding: * Overweight * Obesity * Morbid Obesity * Other/Unknown
--- NOTE | 2024-11-30 09:24 | WPDCDIQUERY2 ---
CDI Query Clarification Request Patient with a BMI of 64.4 please provide a diagnosis to accompany this finding: Overweight Obesity Morbid Obesity Other/Unknown
[2024-11-30] MEDS: CHOLECALCIFEROL (VITAMIN D3) 25 MCG (1,000 UNITS) TABLET 50 MCG PO (09:25)
[2024-11-30] MEDS: VERAPAMIL HCL 40 MG TABLET PO ×3 (09:25→17:45)
[2024-11-30] MEDS: METOPROLOL TARTRATE 25 MG TABLET PO ×2 (09:25→21:05)
[2024-11-30] MEDS: EZETIMIBE 10 MG TABLET PO (09:26)
[2024-11-30] MEDS: BACLOFEN 10 MG TABLET PO (09:26)
[2024-11-30] MEDS: APIXABAN 5 MG TABLET PO ×2 (09:26→21:05)
[2024-11-30] MEDS: FOLIC ACID 1 MG TABLET PO (09:26)
[2024-11-30] MEDS: PANTOPRAZOLE 40 MG TABLET PO (09:27)
[2024-11-30] MEDS: GABAPENTIN 300 MG CAPSULE PO ×2 (09:31→15:37)
--- NOTE | 2024-11-30 13:10 | P.PNNP_ITS ---
Progress Note: A&P Assessment and Plan (1) Acute kidney injury: Code(s): N17.9 - Acute kidney failure, unspecified Status: Acute Assessment and Plan: * improvement noted * as noted by trend of labs since admission * no previous baseline labs for comparision * admission creatinine 1.14mg/dl * etiology not clear... * no significant hypotension noted * no contrast exposure * no nephrotoxic medications (although was on ARB and NSAIDs) * eating and drinking okay * related to Afib with RVR? * evaluation to date noted: * urine electrolytes prerenal * urine eosinophils pending * no significant proteinuria * CPK mildly elevated - not enough to affect kidney function * renal ultrasound pending * UA suggestive of infection * holding NSAIDs and ARB * ongoing trial of IVFs * repeat labs and follow UOP (2) Atrial flutter with rapid ventricular response: Code(s): I48.92 - Unspecified atrial flutter Status: Acute Assessment and Plan: * initial EKG with atrial flutter/tachycardiac with heart rate of 159 * s/p IV metoprolol * initiated on diltiazem gtt * subsequently converted to NSR * transitioned from diltiazem gtt to oral metoprolol * on anticoagulation * Cardiology recommendations noted (3) Hypokalemia: Code(s): E87.6 - Hypokalemia Status: Acute Assessment and Plan: * noted on 11/28 * replace/replete as needed * follow trend of K+ (4) Hip injury: Qualifiers: Encounter type: initial encounter Laterality: right Qualified Code(s): S79.911A - Unspecified injury of right hip, initial encounter Code(s): S79.919A - Unspecified injury of unspecified hip, initial encounter Status: Acute Assessment and Plan: * noted on right side s/p fall from bed when sleeping * head CT without acute findings * hip/pelvic X-rays with showing possible right transcervical femoral neck fracture * however, pelvic CT showing no evidence of acute pelvic or hip fracture * continue pain medication as needed * PT/OT as tolerated (5) Acute UTI: Code(s): N39.0 - Urinary tract infection, site not specified Status: Acute Assessment and Plan: * admission UA suggestive: * cloudy, 2+ protein, trace ketones, 2+ bilirubin, 1+ leuk esterase, 21-50 RBC, 11-20 WBC, 4+ bacteria with moderate epithelial cells * urine culture note done * follow blood cultures * on antibiotics (6) Hypertension: Qualifiers: Hypertension type: primary hypertension Qualified Code(s): I10 - Essential (primary) hypertension Code(s): I10 - Essential (primary) hypertension Status: Chronic Assessment and Plan: * reasonable control * losartan on hold * follow trend of hemodynamics Will continue to follow. L Subjective Date/time seen: 11/30/24 13:10 Interval history: Follow-up for acute kidney injury on chronic kidney disease. No apparent distress voiced at the time of my visit; improvement in renal function/creatinine noted with trial of IVFs; no issues/events overnight or earlier this morning; overall, feels pretty good. Exam 2 Narrative: General: elderly but WD/WN female in NAD Heart: normal S1 and S2; no rub Lungs: clear to auscultation Abdomen: soft, nontender, nondistended, positive bowel sounds Extremities: no cyanosis or clubbing; no edema Skin: warm and dry Objective Data Vital Signs Vital Signs: Vital Signs Temp Pulse Resp BP Pulse Ox O2 Del Method FiO2 11/30/24 12:00 98.3 F 81 18 147/71 H 100 11/30/24 10:00 78 11/30/24 09:25 90 11/30/24 08:30 98 11/30/24 08:00 98.3 F 86 20 111/49 L 94 11/30/24 06:00 73 11/30/24 04:00 83 11/30/24 03:45 89 18 97 Room Air 11/30/24 03:18 98.5 F 81 20 130/68 96 11/30/24 02:00 81 11/30/24 00:00 86 11/29/24 23:52 98.1 F 76 20 129/65 95 11/29/24 23:41 81 20 96 Room Air 11/29/24 22:00 81 11/29/24 21:32 85 20 96 Room Air 21 11/29/24 20:36 80 11/29/24 20:18 98.0 F 79 20 152/71 H 93 11/29/24 20:00 71 11/29/24 19:47 69 16 98 Room Air 11/29/24 18:00 69 Intake/Output Intake/Output: Intake & Output 11/27/24 11/28/24 11/29/24 11/30/24 23:59 23:59 23:59 23:59 Intake Total 1085.3 1842.3 1490 2610 Output Total 200 700 750 Balance 1085.3 1642.3 790 1860 Meds/Results Medications: Active Medications Generic Name Dose Route Start Last Admin Trade Name Freq PRN Reason Stop Dose Admin Acetaminophen 650 mg 11/29/24 16:51 Acetaminophen 325 Mg Tablet PO Q6H PRN Mild Pain (1-5) Or Fever Hydrocodone Bitart/Acetaminophen 1 tab 11/29/24 16:51 Hydrocodone/Acetaminophen (*Crx) 5-325 Mg Tablet PO Q6H PRN Pain Rated 6 or Greater Apixaban 5 mg 11/28/24 21:00 11/30/24 09:26 Apixaban 5 Mg Tablet PO 5 mg Q12HR SADIE Administration Atorvastatin Calcium 20 mg 11/27/24 20:25 11/29/24 18:32 Atorvastatin 20 Mg Tablet PO 20 mg QPM SADIE Administration Baclofen 10 mg 11/28/24 09:00 11/30/24 09:26 Baclofen 10 Mg Tablet PO 10 mg QAM SADIE Administration Ezetimibe 10 mg 11/28/24 09:00 11/30/24 09:26 Ezetimibe 10 Mg Tablet PO 10 mg DAILY SADIE Administration Folic Acid 1 mg 11/28/24 09:00 11/30/24 09:26 Folic Acid 1 Mg Tablet PO 1 mg DAILY SADIE Administration Gabapentin 300 mg 11/28/24 09:00 11/30/24 15:37 Gabapentin 300 Mg Capsule PO 300 mg 0900,1500 SADIE Administration Gabapentin 600 mg 11/27/24 21:00 11/29/24 20:36 Gabapentin 300 Mg Capsule PO 600 mg HS SADIE Administration Ceftriaxone Sodium 1 gm/ 50 mls @ 100 mls/hr 11/28/24 16:00 11/30/24 15:37 Sodium Chloride IVPB 100 mls/hr Q24H SADIE Administration Sodium Chloride 1,000 mls @ 75 mls/hr 11/30/24 06:55 11/30/24 09:23 Normal Saline Iv IV CONT 75 mls/hr .[id number] SADIE Administration Losartan Potassium 25 mg 11/27/24 21:00 11/28/24 20:35 Losartan Potassium 25 Mg Tablet PO 25 mg HS SADIE Administration Metoprolol Tartrate 25 mg 11/28/24 11:00 11/30/24 09:25 Metoprolol Tartrate 25 Mg Tablet PO 25 mg Q12HR SADIE Administration Morphine Sulfate 15 mg 11/28/24 04:00 11/30/24 04:28 Morphine Sulfate (*Crx) 15 Mg Tabcr PO 15 mg 0400,1800 SADIE Administration Pantoprazole Sodium 40 mg 11/28/24 09:00 11/30/24 09:27 Pantoprazole 40 Mg Tablet PO 40 mg QAM SADIE Administration Sulfasalazine 500 mg 11/28/24 09:00 11/30/24 09:27 Sulfasalazine 500 Mg Tablet PO 500 mg BID SADIE Administration Tramadol HCl 100 mg 11/28/24 22:00 11/29/24 04:54 Tramadol Hcl (*Crx) 50 Mg Tablet PO 100 mg Q8HR SADIE Administration Verapamil HCl 40 mg 11/28/24 09:00 11/30/24 14:07 Verapamil Hcl 40 Mg Tablet PO 40 mg TID SADIE Administration Vitamin D 50 mcg 11/28/24 09:00 11/30/24 09:25 Cholecalciferol (Vitamin D3) 25 Mcg (1,000 Units) Tablet PO 50 mcg DAILY SADIE Administration Radiology Results: ITS Impressions Head CT 11/27/24 14:07 IMPRESSION: 1. No fracture or acute intracranial process. 2. Small old lacunar infarct at the left internal capsule and mild scattered white matter hypoattenuation consistent with chronic small vessel ischemic disease. 3. 1.4 cm calcified meningioma overlying the right occipital lobe. Hip/Pelvis X-Ray 11/27/24 15:09 IMPRESSION: Possible right transcervical femoral neck fracture, recommend CT of the pelvis for confirmation. Pelvis CT 11/27/24 16:16 IMPRESSION: No CT evidence of acute pelvic or hip fracture. Renal Ultrasound 11/29/24 12:15 Impression: 1: Unremarkable renal ultrasound. No stones, masses or hydronephrosis. Chest X-Ray 11/29/24 23:45 IMPRESSION: Platelike atelectasis within the left mid to lower lung field. No focal infiltrate or effusion. Labs Labs: Laboratory Tests 11/30/24 03:51 11/30/24 03:51 Calcium 9.0 Phosphorus 3.3 Magnesium 2.2 Albumin 3.6 Microbiology 11/27/24 12:46 Blood Blood Culture - Preliminary 11/27/24 12:23 Blood Blood Culture - Preliminary
--- NOTE | 2024-11-30 15:35 | PM.IMPN ---
Progress Note: A&P Assessment and Plan (1) Atrial flutter with rapid ventricular response: Code(s): I48.92 - Unspecified atrial flutter Status: Acute (2) JOSE JUAN (acute kidney injury): Code(s): N17.9 - Acute kidney failure, unspecified Status: Acute Plan Rate controlled. Continue telemetry. JOSE JUAN improving. Appreciate Nephrology recommendations. Patient wishes to be full code. Subjective Date/time seen: 11/30/24 15:35 Interval history: NO ACUTE OVERNIGHT EVENTS. She has no complaints. Review of Systems Review of Systems: All systems reviewed & are unremarkable except as noted in HPI and below (Subjective) Exam Const: General: comfortable and no acute distress HENMT: Mouth: Yes moist mucous membranes Neck: Neck: supple Resp: Effort & Inspection: normal respiratory effort Auscultation: clear to auscultation bilaterally Cardio: Rate: regular rate Rhythm: regular rhythm Objective Data Vital Signs Vital Signs: Vital Signs - 24 hr 11/29/24 16:00 11/29/24 16:00 11/29/24 16:00 Temperature 97.4 F L Pulse Rate 73 79 Respiratory Rate 16 Blood Pressure 128/68 Pulse Oximetry 98 98 Oxygen Delivery Room Air Fraction of Inspired Oxygen 11/29/24 18:00 11/29/24 19:47 11/29/24 20:00 Temperature Pulse Rate 69 69 71 Respiratory Rate 16 Blood Pressure Pulse Oximetry 98 Oxygen Delivery Room Air Fraction of Inspired Oxygen 11/29/24 20:18 11/29/24 20:36 11/29/24 21:32 Temperature 98.0 F Pulse Rate 79 80 85 Respiratory Rate 20 20 Blood Pressure 152/71 H Pulse Oximetry 93 96 Oxygen Delivery Room Air Fraction of Inspired Oxygen 21 11/29/24 22:00 11/29/24 23:41 11/29/24 23:52 Temperature 98.1 F Pulse Rate 81 81 76 Respiratory Rate 20 20 Blood Pressure 129/65 Pulse Oximetry 96 95 Oxygen Delivery Room Air Fraction of Inspired Oxygen 11/30/24 00:00 11/30/24 02:00 11/30/24 03:18 Temperature 98.5 F Pulse Rate 86 81 81 Respiratory Rate 20 Blood Pressure 130/68 Pulse Oximetry 96 Oxygen Delivery Fraction of Inspired Oxygen 11/30/24 03:45 11/30/24 04:00 11/30/24 06:00 Temperature Pulse Rate 89 83 73 Respiratory Rate 18 Blood Pressure Pulse Oximetry 97 Oxygen Delivery Room Air Fraction of Inspired Oxygen 11/30/24 08:00 11/30/24 08:30 11/30/24 09:25 Temperature 98.3 F Pulse Rate 86 98 90 Respiratory Rate 20 Blood Pressure 111/49 L Pulse Oximetry 94 Oxygen Delivery Fraction of Inspired Oxygen 11/30/24 10:00 11/30/24 12:00 11/30/24 12:00 Temperature 98.3 F Pulse Rate 78 81 81 Respiratory Rate 18 Blood Pressure 147/71 H Pulse Oximetry 100 Oxygen Delivery Fraction of Inspired Oxygen Intake/Output Intake/Output: Intake & Output 11/27/24 11/28/24 11/29/24 11/30/24 23:59 23:59 23:59 23:59 Intake Total 1085.3 1842.3 1440 2610 Output Total 200 700 350 Balance 1085.3 1642.3 740 2260 Meds/Results Medications: Active Medications Generic Name Dose Route Start Last Admin Trade Name Freq PRN Reason Stop Dose Admin Acetaminophen 650 mg 11/29/24 16:51 Acetaminophen 325 Mg Tablet PO Q6H PRN Mild Pain (1-5) Or Fever Hydrocodone Bitart/Acetaminophen 1 tab 11/29/24 16:51 Hydrocodone/Acetaminophen (*Crx) 5-325 Mg Tablet PO Q6H PRN Pain Rated 6 or Greater Apixaban 5 mg 11/28/24 21:00 11/30/24 09:26 Apixaban 5 Mg Tablet PO 5 mg Q12HR SADIE Administration Atorvastatin Calcium 20 mg 11/27/24 20:25 11/29/24 18:32 Atorvastatin 20 Mg Tablet PO 20 mg QPM SADIE Administration Baclofen 10 mg 11/28/24 09:00 11/30/24 09:26 Baclofen 10 Mg Tablet PO 10 mg QAM SADIE Administration Ezetimibe 10 mg 11/28/24 09:00 11/30/24 09:26 Ezetimibe 10 Mg Tablet PO 10 mg DAILY SADIE Administration Folic Acid 1 mg 11/28/24 09:00 11/30/24 09:26 Folic Acid 1 Mg Tablet PO 1 mg DAILY SADIE Administration Gabapentin 300 mg 11/28/24 09:00 11/30/24 09:31 Gabapentin 300 Mg Capsule PO 300 mg 0900,1500 SADIE Administration Gabapentin 600 mg 11/27/24 21:00 11/29/24 20:36 Gabapentin 300 Mg Capsule PO 600 mg HS SADIE Administration Ceftriaxone Sodium 1 gm/ 50 mls @ 100 mls/hr 11/28/24 16:00 11/29/24 16:23 Sodium Chloride IVPB 100 mls/hr Q24H SADIE Administration Sodium Chloride 1,000 mls @ 75 mls/hr 11/30/24 06:55 11/30/24 09:23 Normal Saline Iv IV CONT 75 mls/hr .[id number] SADIE Administration Losartan Potassium 25 mg 11/27/24 21:00 11/28/24 20:35 Losartan Potassium 25 Mg Tablet PO 25 mg HS SADIE Administration Metoprolol Tartrate 25 mg 11/28/24 11:00 11/30/24 09:25 Metoprolol Tartrate 25 Mg Tablet PO 25 mg Q12HR SADIE Administration Morphine Sulfate 15 mg 11/28/24 04:00 11/30/24 04:28 Morphine Sulfate (*Crx) 15 Mg Tabcr PO 15 mg 0400,1800 SADIE Administration Pantoprazole Sodium 40 mg 11/28/24 09:00 11/30/24 09:27 Pantoprazole 40 Mg Tablet PO 40 mg QAM SADIE Administration Sulfasalazine 500 mg 11/28/24 09:00 11/30/24 09:27 Sulfasalazine 500 Mg Tablet PO 500 mg BID SADIE Administration Tramadol HCl 100 mg 11/28/24 22:00 11/29/24 04:54 Tramadol Hcl (*Crx) 50 Mg Tablet PO 100 mg Q8HR SADIE Administration Verapamil HCl 40 mg 11/28/24 09:00 11/30/24 14:07 Verapamil Hcl 40 Mg Tablet PO 40 mg TID SADIE Administration Vitamin D 50 mcg 11/28/24 09:00 11/30/24 09:25 Cholecalciferol (Vitamin D3) 25 Mcg (1,000 Units) Tablet PO 50 mcg DAILY SADIE Administration Radiology Results: ITS Impressions Head CT 11/27/24 14:07 IMPRESSION: 1. No fracture or acute intracranial process. 2. Small old lacunar infarct at the left internal capsule and mild scattered white matter hypoattenuation consistent with chronic small vessel ischemic disease. 3. 1.4 cm calcified meningioma overlying the right occipital lobe. Hip/Pelvis X-Ray 11/27/24 15:09 IMPRESSION: Possible right transcervical femoral neck fracture, recommend CT of the pelvis for confirmation. Pelvis CT 11/27/24 16:16 IMPRESSION: No CT evidence of acute pelvic or hip fracture. Renal Ultrasound 11/29/24 12:15 Impression: 1: Unremarkable renal ultrasound. No stones, masses or hydronephrosis. Chest X-Ray 11/29/24 23:45 IMPRESSION: Platelike atelectasis within the left mid to lower lung field. No focal infiltrate or effusion. Labs Labs: Laboratory Results - last 24 hr 11/29/24 11/30/24 05:33 03:51 WBC 6.3 RBC 3.05 L Hgb 11.3 L Hct 33.3 L MCV 109.2 H MCH 37.0 H MCHC 33.9 RDW 13.5 Plt Count 303 MPV 10.4 Sodium 127 L Potassium 3.4 Chloride 93 L Carbon Dioxide 29 Anion Gap 5 BUN 34 H Creatinine 1.78 H Estim Creat Clear Calc 42 Estimated GFR 29 L Glucose 108 Calcium 9.0 Phosphorus 3.3 Magnesium 2.2 Albumin 3.6 Tot Complement (CH50) >60
[2024-11-30] MEDS: cefTRIAXone 1 GM in SODIUM CHLORIDE 0.9% IV 50 ML 100 ML IVPB (15:37)
[2024-11-30] MEDS: ATORVASTATIN 20 MG TABLET PO (17:45)
[2024-11-30 18:31] LABS: Anion Gap 6 mmol/L (4-12); Blood Urea Nitrogen 31 mg/dL (7-17); Calcium 9.1 mg/dL (8.4-10.2); Carbon Dioxide 29 mmol/L (22-30); Chloride 95 mmol/L (98-107); Estimated CRCL calculation 46 ml/min; Estimated Glomerular Filt Rate 32; Glucose 136 mg/dL (65-110); Potassium 3.4 mmol/L (3.4-5.0); Sodium 130 mmol/L (137-145)
[2024-11-30] MEDS: GABAPENTIN 300 MG CAPSULE 600 MG PO (21:05)
[2024-12-01] VITALS (11 sets, daily range): BP systolic 134–155; BP diastolic 56–86; PULSE 74–95; RESP 18–22; TEMP 36.6–36.7; O2SAT 95–100
[2024-12-01 08:15] LABS: Albumin Level 3.2 g/dL (3.5-5.1); Anion Gap 5 mmol/L (4-12); Blood Urea Nitrogen 26 mg/dL (7-17); Calcium 9.2 mg/dL (8.4-10.2); Carbon Dioxide 30 mmol/L (22-30); Chloride 98 mmol/L (98-107); Estimated CRCL calculation 59 ml/min; Estimated Glomerular Filt Rate 42; Glucose 102 mg/dL (65-110); Potassium 3.9 mmol/L (3.4-5.0); Sodium 133 mmol/L (137-145)
[2024-12-01] MEDS: FOLIC ACID 1 MG TABLET PO (08:45)
[2024-12-01] MEDS: CHOLECALCIFEROL (VITAMIN D3) 25 MCG (1,000 UNITS) TABLET 50 MCG PO (08:45)
[2024-12-01] MEDS: APIXABAN 5 MG TABLET PO (08:45)
[2024-12-01] MEDS: EZETIMIBE 10 MG TABLET PO (08:45)
[2024-12-01] MEDS: BACLOFEN 10 MG TABLET PO (08:45)
[2024-12-01] MEDS: GABAPENTIN 300 MG CAPSULE PO (08:46)
[2024-12-01] MEDS: METOPROLOL TARTRATE 25 MG TABLET PO (08:46)
[2024-12-01] MEDS: PANTOPRAZOLE 40 MG TABLET PO (08:47)
[2024-12-01] MEDS: VERAPAMIL HCL 40 MG TABLET PO ×3 (08:47→16:17)
[2024-12-01] MEDS: SODIUM CHLORIDE 0.9% IV 1,000 ML 75 ML IV CONT (08:49)
--- NOTE | 2024-12-01 12:55 | P.PNNP_ITS ---
Progress Note: A&P Assessment and Plan (1) Acute kidney injury: Code(s): N17.9 - Acute kidney failure, unspecified Status: Acute Assessment and Plan: * improvement noted * as noted by trend of labs since admission * no previous baseline labs for comparision * admission creatinine 1.14mg/dl * etiology not clear... * no significant hypotension noted * no contrast exposure * no nephrotoxic medications (although was on ARB and NSAIDs) * eating and drinking okay * related to Afib with RVR? * evaluation to date noted: * urine electrolytes prerenal * urine eosinophils pending * no significant proteinuria * CPK mildly elevated - not enough to affect kidney function * renal ultrasound pending * UA suggestive of infection * holding NSAIDs and ARB * s/p trial of IVFs * repeat labs and follow UOP (2) Atrial flutter with rapid ventricular response: Code(s): I48.92 - Unspecified atrial flutter Status: Acute Assessment and Plan: * initial EKG with atrial flutter/tachycardiac with heart rate of 159 * s/p IV metoprolol * initiated on diltiazem gtt * subsequently converted to NSR * transitioned from diltiazem gtt to oral metoprolol * on anticoagulation * Cardiology recommendations noted (3) Hypokalemia: Code(s): E87.6 - Hypokalemia Status: Acute Assessment and Plan: * noted on 11/28 * replace/replete as needed * follow trend of K+ (4) Hip injury: Qualifiers: Encounter type: initial encounter Laterality: right Qualified Code(s): S79.911A - Unspecified injury of right hip, initial encounter Code(s): S79.919A - Unspecified injury of unspecified hip, initial encounter Status: Acute Assessment and Plan: * noted on right side s/p fall from bed when sleeping * head CT without acute findings * hip/pelvic X-rays with showing possible right transcervical femoral neck fracture * however, pelvic CT showing no evidence of acute pelvic or hip fracture * continue pain medication as needed * PT/OT as tolerated (5) Acute UTI: Code(s): N39.0 - Urinary tract infection, site not specified Status: Acute Assessment and Plan: * admission UA suggestive: * cloudy, 2+ protein, trace ketones, 2+ bilirubin, 1+ leuk esterase, 21-50 RBC, 11-20 WBC, 4+ bacteria with moderate epithelial cells * urine culture note done * follow blood cultures - negative to date * on antibiotics (6) Hypertension: Qualifiers: Hypertension type: primary hypertension Qualified Code(s): I10 - Essential (primary) hypertension Code(s): I10 - Essential (primary) hypertension Status: Chronic Assessment and Plan: * reasonable control * losartan on hold * follow trend of hemodynamics Not opposed to discharge from renal perspective if otherwise medically stable -- recommend repeat labs next week by PCP to ensure kidney continues to improve if not stabilize. Will continue to follow. L Subjective Date/time seen: 12/01/24 12:55 Interval history: Follow-up for acute kidney injury on chronic kidney disease. Resting comfortably at the time of my visit; renal function/creatinine continues to improve with current interventions/treatment; no apparent distress noted when seen; no events overnight. Exam 2 Narrative: General: elderly but WD/WN female in NAD Heart: normal S1 and S2; no rub Lungs: clear to auscultation Abdomen: soft, nontender, nondistended, positive bowel sounds Extremities: no cyanosis or clubbing; no edema Skin: warm and intact Objective Data Vital Signs Vital Signs: Vital Signs Temp Pulse Resp BP Pulse Ox O2 Del Method FiO2 12/01/24 12:00 97.8 F 88 18 138/56 L 100 12/01/24 10:00 87 12/01/24 08:46 87 12/01/24 08:00 95 12/01/24 08:00 98 F 80 18 155/71 H 98 12/01/24 06:00 74 12/01/24 04:25 75 22 H 95 Room Air 21 12/01/24 04:09 98.0 F 75 22 H 134/60 95 12/01/24 04:00 77 12/01/24 02:00 76 12/01/24 00:00 76 11/30/24 23:51 98.9 F 75 22 H 133/62 98 11/30/24 23:36 72 18 100 Room Air 21 11/30/24 22:00 72 11/30/24 21:05 78 11/30/24 20:10 80 18 100 Room Air 21 11/30/24 20:00 93 11/30/24 19:48 98.5 F 80 18 151/70 H 100 11/30/24 18:00 75 08/06/25 16:00 80 11/30/24 16:00 97.4 F L 76 18 146/71 H 98 Intake/Output Intake/Output: Intake & Output 11/28/24 11/29/24 11/30/24 12/01/24 23:59 23:59 23:59 23:59 Intake Total 1842.3 1490 4457.5 2210 Output Total 502 808 0209 1100 Balance 1642.3 790 2357.5 1110 Meds/Results Medications: Active Medications Generic Name Dose Route Start Last Admin Trade Name Freq PRN Reason Stop Dose Admin Acetaminophen 650 mg 11/29/24 16:51 Acetaminophen 325 Mg Tablet PO Q6H PRN Mild Pain (1-5) Or Fever Hydrocodone Bitart/Acetaminophen 1 tab 11/29/24 16:51 Hydrocodone/Acetaminophen (*Crx) 5-325 Mg Tablet PO Q6H PRN Pain Rated 6 or Greater Apixaban 5 mg 11/28/24 21:00 12/01/24 08:45 Apixaban 5 Mg Tablet PO 5 mg Q12HR SADIE Administration Atorvastatin Calcium 20 mg 11/27/24 20:25 11/30/24 17:45 Atorvastatin 20 Mg Tablet PO 20 mg QPM SADIE Administration Baclofen 10 mg 11/28/24 09:00 12/01/24 08:45 Baclofen 10 Mg Tablet PO 10 mg QAM SADIE Administration Ezetimibe 10 mg 11/28/24 09:00 12/01/24 08:45 Ezetimibe 10 Mg Tablet PO 10 mg DAILY SADIE Administration Folic Acid 1 mg 11/28/24 09:00 12/01/24 08:45 Folic Acid 1 Mg Tablet PO 1 mg DAILY SADIE Administration Gabapentin 300 mg 11/28/24 09:00 12/01/24 08:46 Gabapentin 300 Mg Capsule PO 300 mg 0900,1500 SADIE Administration Gabapentin 600 mg 11/27/24 21:00 11/30/24 21:05 Gabapentin 300 Mg Capsule PO 600 mg HS SADIE Administration Sodium Chloride 1,000 mls @ 75 mls/hr 11/30/24 06:55 12/01/24 08:49 Normal Saline Iv IV CONT 75 mls/hr .[id number] SADIE Administration Losartan Potassium 25 mg 11/27/24 21:00 11/28/24 20:35 Losartan Potassium 25 Mg Tablet PO 25 mg HS SADIE Administration Metoprolol Tartrate 25 mg 11/28/24 11:00 12/01/24 08:46 Metoprolol Tartrate 25 Mg Tablet PO 25 mg Q12HR SADIE Administration Morphine Sulfate 15 mg 11/28/24 04:00 12/01/24 08:44 Morphine Sulfate (*Crx) 15 Mg Tabcr PO Not Given 0400,1800 [facility] Pantoprazole Sodium 40 mg 11/28/24 09:00 12/01/24 08:47 Pantoprazole 40 Mg Tablet PO 40 mg QAM SADIE Administration Sulfasalazine 500 mg 11/28/24 09:00 12/01/24 08:47 Sulfasalazine 500 Mg Tablet PO 500 mg BID SADIE Administration Tramadol HCl 100 mg 11/28/24 22:00 11/29/24 04:54 Tramadol Hcl (*Crx) 50 Mg Tablet PO 100 mg Q8HR SADIE Administration Verapamil HCl 40 mg 11/28/24 09:00 12/01/24 12:28 Verapamil Hcl 40 Mg Tablet PO 40 mg TID SDAIE Administration Vitamin D 50 mcg 11/28/24 09:00 12/01/24 08:45 Cholecalciferol (Vitamin D3) 25 Mcg (1,000 Units) Tablet PO 50 mcg DAILY SADIE Administration Radiology Results: ITS Impressions Head CT 11/27/24 14:07 IMPRESSION: 1. No fracture or acute intracranial process. 2. Small old lacunar infarct at the left internal capsule and mild scattered white matter hypoattenuation consistent with chronic small vessel ischemic disease. 3. 1.4 cm calcified meningioma overlying the right occipital lobe. Hip/Pelvis X-Ray 11/27/24 15:09 IMPRESSION: Possible right transcervical femoral neck fracture, recommend CT of the pelvis for confirmation. Pelvis CT 11/27/24 16:16 IMPRESSION: No CT evidence of acute pelvic or hip fracture. Renal Ultrasound 11/29/24 12:15 Impression: 1: Unremarkable renal ultrasound. No stones, masses or hydronephrosis. Chest X-Ray 11/29/24 23:45 IMPRESSION: Platelike atelectasis within the left mid to lower lung field. No focal infiltrate or effusion. Labs Labs: Laboratory Tests 11/30/24 03:51 12/01/24 07:30 Calcium 9.2 Phosphorus 3.1 Albumin 3.2 L Microbiology 11/27/24 12:46 Blood Blood Culture - Preliminary 11/27/24 12:23 Blood Blood Culture - Preliminary
--- NOTE | 2024-12-01 13:29 | PM.DS ---
DS: Admitting Diagnosis Discharge Date 12/01/2024 Admitting Diagnosis Atrial flutter DS: Discharge Diagnosis Discharge Diagnosis (1) Hypertension: Qualifiers: Hypertension type: primary hypertension Qualified Code(s): I10 - Essential (primary) hypertension Code(s): I10 - Essential (primary) hypertension Status: Chronic (2) Atrial flutter with rapid ventricular response: Code(s): I48.92 - Unspecified atrial flutter Status: Acute (3) JOSE JUAN (acute kidney injury): Code(s): N17.9 - Acute kidney failure, unspecified Status: Acute (4) Acute UTI: Code(s): N39.0 - Urinary tract infection, site not specified Status: Acute DS: Summary Hospital Course Hospital Course: 64-year-old female with history of hyperlipidemia and hypertension presents to [facility] ER on 11/29/2024 with a ground level fall. Trauma evaluation including a head CT and pelvis CT did not demonstrate any acute fractures. She performed well with PT and OT. On presentation she was found to be in a flutter with rapid ventricular response. Cardiology was consulted. With a chads Vasc score of 3 she was started on Eliquis 5 mg p.o. b.i.d. without any complications. She had an echo performed which demonstrated 65-75% ejection fraction, mild increased LV wall thickness, normal LV septal wall on grade 2 diastolic dysfunction without any valvular disease. She did convert to normal sinus rhythm. Initially placed on diltiazem that was discontinued and she was started on metoprolol 25 mg p.o. b.i.d.. She remained in normal sinus rhythm and is discharged on metoprolol succinate 50 mg p.o. q.day. Urinalysis is contaminated and urine culture was not collected. She did receive 5 days of ceftriaxone. She had an acute kidney injury and this resolved with fluid resuscitation and monitoring. She had a nephrology consultation and she will follow up with Nephrology in the outpatient setting. The patient is discharged home in stable condition on 12/01/2024. She was full code during the admission. Time Spent with Patient Time attestation: Total time spent providing and/or coordinating discharge services: Exam Narrative: General: elderly but WD/WN female in NAD Heart: normal S1 and S2; no rub Lungs: clear to auscultation Abdomen: soft, nontender, nondistended, positive bowel sounds Extremities: no cyanosis or clubbing; no edema Skin: warm and dry DS: Data Data Completed and Pending Labs on day of discharge: Labs from last 24 hours 12/01/24 11/30/24 11/29/24 07:30 18:11 05:33 Sodium 133 L 130 L Potassium 3.9 3.4 Chloride 98 95 L Carbon Dioxide 30 29 Anion Gap 5 6 BUN 26 H 31 H Creatinine 1.27 H 1.62 H Estim Creat Clear Calc 59 46 Estimated GFR 42 L 32 L Glucose 102 136 H Calcium 9.2 9.1 Phosphorus 3.1 Albumin 3.2 L Tot Complement (CH50) >60 Preliminary micro results at discharge 11/27/24 12:46 Blood Culture - Preliminary Blood 11/27/24 12:23 Blood Culture - Preliminary Blood Discharge Plan Discharge Attending physician on discharge: Arabella Rodriguez Consulting providers: Олег Escobedo; Delphine Lima Discharging Clinician: Arabella Rodriguez Patient Disposition: Home Activity: august shower Diet: as tolerated Patient Instructions: Antibiotic Form Patient Language: Tuvaluan Stand Alone Forms: General Discharge Information Follow-up/Referrals: Delphine Lima MD [Physician] - 12/05/24 (Follow-up on kidney insufficiency) Valerie Barr APN-C [Advanced Practice Nurse] - 4 Weeks Discharge Medications: New Eliquis 5 mg Tablet 5 mg PO Q12HR Qty: 30 0RF metoprolol succinate 50 mg tablet extended release 24 hr 50 mg PO DAILY Qty: 30 0RF Continued atorvastatin 20 mg tablet 20 mg PO QPM baclofen 10 mg tablet 10 mg PO QAM ezetimibe 10 mg tablet 10 mg PO DAILY verapamil 40 mg tablet 40 mg PO TID tramadol 50 mg tablet 100 mg PO TID gabapentin 300 mg capsule 300 mg PO Q8H Patient Comments: 1 in am, 1 in afternoon, 2 at HS methotrexate sodium 2.5 mg tablet 5 mg PO WEEKLY Patient Comments: Mondays. Reports she splits dose 1/2 in am and 1/2 in pm prednisone 5 mg tablet 5 mg PO PRN PRN (Reason: arthritis) sulfasalazine 500 mg tablet,delayed release (DR/EC) 0.5 g PO BID morphine 15 mg tablet extended release 15 mg PO BID Patient Comments: Pt reports taking at 4am and 6pm Cosentyx Pen (2 Pens) 150 mg/mL pen injector 150 mg SUBCUT MONTHLY Patient Comments: Takes on 7th of every month omeprazole 20 mg capsule,delayed release(DR/EC) 20 mg PO DAILY folic acid 1 mg tablet 1 mg PO DAILY cholecalciferol (vitamin D3) [Vitamin D3] 50 mcg (2,000 unit) capsule 50 mcg PO DAILY Discontinued meloxicam 7.5 mg tablet 7.5 mg PO DAILY losartan 25 mg tablet 25 mg PO HS Date of admission: 11/28/24 13:58 Primary Care Provider: AlmasAl Admitting Provider: Matthew Davenport Attending physician on admission: Matthew Davenport Condition: Improved Hospitalist MIPS Heart Failure (Exclusion) Patient has history of Heart Transplant or Left Ventricular Assistive Device?: No IF YES, STOP HERE Heart Failure (Qualifier) Patient has current or prior documentation of LVEF less than or equal to 40%, or mod/servere depressed LVSF?: No IF NO, STOP HERE
== END 2024-12-01 16:38 | disposition home or self-care (01) | DRG 309 ==
LOC: ANHED 14:44 → ANHIMU 16:10
PROVIDERS: Internal Medicine; Internal Medicine Nephrology; Student in an Organized Health Care Education/Training Program; Admitting Provider General Practice; Emergency Provider Emergency Medicine; PCP Internal Medicine; Visit Provider General Practice
DX: I48.92 Unspecified atrial flutter (principal); N17.9 Acute kidney failure, unspecified; N39.0 Urinary tract infection, site not specified; Z68.44 Body mass index [BMI] 60.0-69.9, adult; I10 Essential (primary) hypertension; E87.6 Hypokalemia; M25.551 Pain in right hip; M06.9 Rheumatoid arthritis, unspecified; M45.9 Ankylosing spondylitis of unspecified sites in spine; F41.9 Anxiety disorder, unspecified; Z96.653 Presence of artificial knee joint, bilateral; W06.XXXA Fall from bed, initial encounter; E66.01 Morbid (severe) obesity due to excess calories
CPT/HCPCS: 36415; 70450; 71045; 72192; 73502; 76775; 80048; 80053; 80069; 81001; 82550; 82570; 83605; 83735; 84156; 84300; 84439; 84443; 84480; 84540; 85025; 85027; 85610; 85730; 85999; 86140; 86160; 86162; 87040; 93005; 94762; 96361; 96365; 96366; 96367; 96372; 96375; 96376; 97161; 97165; 99285; A9270; C8929; G0378; J0616; J0696; J1163; J1171; J1650; J3475; J7030; J7120; Q9957